=== PATIENT | male | born 1945 | race Caucasian/White ===

== ENCOUNTER → 2023-11-11 14:21 | Outpatient (REF) | payer MEDICARE, OTHER, SELFPAY | LOC: RAD 14:21 | PROVIDERS: ATTENDING PHYSICIAN Family Medicine | DX: R06.02 Shortness of breath (principal) | CPT/HCPCS: 71046 ==

== ENCOUNTER → 2023-11-14 07:40 | Outpatient (REF) | payer MEDICARE, OTHER, SELFPAY | LOC: RAD 07:40 | PROVIDERS: ATTENDING PHYSICIAN Family Medicine | DX: J84.10 Pulmonary fibrosis, unspecified (principal) | CPT/HCPCS: 71250 ==

== ENCOUNTER → 2023-12-10 07:02 | Outpatient (REF) | payer MEDICARE, OTHER, SELFPAY ==
[2023-12-10] MEDS: LEXISCAN 0.400000000000000022 MG IV (08:58)
[2023-12-10] MEDS: AMINOPHYLLINE 75 MG IV (09:19)
== END ==
LOC: RCS 07:02
PROVIDERS: ATTENDING PHYSICIAN Family Medicine
DX: R06.09 Other forms of dyspnea (principal)
CPT/HCPCS: 78452; 93017; A9500; J2785

== ENCOUNTER → 2023-12-13 12:33 | Outpatient (REF) | payer MEDICARE, OTHER, SELFPAY | LOC: RAD 12:33 | PROVIDERS: ATTENDING PHYSICIAN Family Medicine | DX: M54.50 Low back pain, unspecified (principal) | CPT/HCPCS: 72110; 72202 ==

== ENCOUNTER → 2023-12-23 13:32 | Outpatient (REF) | payer MEDICARE, OTHER, SELFPAY | LOC: HWRCS 13:32 | PROVIDERS: ATTENDING PHYSICIAN Internal Medicine Critical Care Medicine; FAMILY PHYSICIAN Family Medicine | DX: R06.09 Other forms of dyspnea (principal) | CPT/HCPCS: 36415; 82085; 83516; 83880; 85025; 85379; 85652; 86038; 86225; 86235; 86331; 86430; 86606; 93306 ==

== ENCOUNTER → 2023-12-31 12:00 | Outpatient (REF) | payer MEDICARE, OTHER, SELFPAY ==
[2023-12-31 14:57] LABS: C-Reactive Protein < 5.00 mg/L (0.0-10.00)
[2024-01-03 15:24] LABS: IgE 76 kU/L (<=214)
== END ==
LOC: REG 12:00
PROVIDERS: ATTENDING PHYSICIAN Internal Medicine Critical Care Medicine
DX: J31.0 Chronic rhinitis (principal); Z78.9 Other specified health status; J84.9 Interstitial pulmonary disease, unspecified
CPT/HCPCS: 36415; 82785; 86140

== ENCOUNTER 2024-01-25 13:17 | Observation (INO) | payer MEDICARE, OTHER, SELFPAY ==
[2024-01-25] VITALS (21 sets, daily range): BP systolic 119–170; BP diastolic 67–90; PULSE 64; O2SAT 95; BMI 27.1; BMI 26.5
--- NOTE | 2024-01-25 06:50 | ED.GENMED ---
History of Present Illness
General
Chief Complaint: Breathing Problem
Source: patient
Exam Limitations: none
Time Seen by Provider: 01/25/24 06:26
Nursing documentation reviewed up to this point in time: agreed with
Travel History
Have you had any contact with someone who has COVID-19?: No
Do you have any symptoms of coronavirus? Fever > 100 degrees, chills, cough, shortness of breath, sore throat, loss of taste or smell, muscle aches, or headache?: No
History of Present Illness
History of Present Illness:
The patient is a 78-year-old man with a past medical history of Parkinson's who lives alone and called an ambulance this morning because he felt as though he could not take good deep breaths. Patient reports that he sat up on the edge of the bed
and felt like he could not breathe. Denies cough and fever. He denies chest pain. In addition, he reports that he is unable to empty his bladder, which is unusual for him. He is requesting a catheter. He reports he has not urinated since last
night. He reports he is generally able to urinate without difficulty.
Past History
Past History
ED Past Medical History: Hypercholesterolemia, Other (Chronic alcohol use) and Other (Parkinson disease)
ED Past Surgical History: Other
Social History
Tobacco: Non-smoker
Alcohol: Chronic alcoholic
Drug: None
Personal:
Living: alone
Employment: Other
Family History
Family History: Other
Review of Systems
Review of Systems
Allergies reviewed?: Yes
All Other Systems: ROS reviewed and negative except as documented in HPI and ROS
Constitutional: Reports fatigue
EENT: Reports no symptoms
Respiratory: Reports trouble breathing
Cardiac: Reports no symptoms
ABD/GI: Reports no symptoms
: Reports difficulty voiding
Musculoskeletal: Reports no symptoms
Skin: Reports no symptoms
Neurological: Reports no symptoms
Endocrine: Reports no symptoms
Hematologic/Lymphatic: Reports no symptoms
Psychiatric: Reports no symptoms
Phy Exam
Physical Exam
Physical Exam:
Physical Exam
General: no apparent distress, not acutely ill but anxious. Keeps asking questions, difficulty focusing
Neck: supple. no meningeal signs. normal psoterior pharynx
Heart: s1/s2 regular rate and rhythm,
Lungs: no acute respiratory distress. Speaks in full sentences. Clear breath sounds
Abdomen: normal bowel sounds. not tender. no CVAT
Neuro: alert and oriented. no focal neurological deficits
Skin: no rash
Psychiatric: well kept. interactive and cooperative
Extremities: no edema. no calf tenderness. negative homans. good distal pulses
Scores
Heart Failure Risk
Heart Failure Risk Score: Not Applicable
Course
Orders/Labs/Results
Orders:
Orders
01/25/24 06:22
EKG [Electrocardiogram (*1)] Urgent
Reason for Study: Other
Other Reason for Exam: multiple complaints
EKG- Treatment ONCE
01/25/24 06:32
Bladder Scan- Treatment ONCE
01/25/24 06:33
CR Chest - 2 Views Urgent
Comment:
Reason For Exam: SOB
01/25/24 07:19
Alcohol Urgent
Complete Blood Count/With Diff Urgent
Comprehensive Metabolic Panel Urgent
NT-proBNP Urgent
Troponin I Urgent
Urinalysis Reflex To Culture Urgent
Date Specimen was Collected: 01/25/24
Time Specimen was Collected: 07:18
01/25/24 07:50
Straight cath- Treatment ONCE
Physical Therapy Consult [Pt Eval And Treat] Urgent
Activity Level: Out of Bed-Early Mobility
01/25/24 08:43
D-Dimer Urgent
01/25/24 09:22
Case Management Consult ONCE
Case Management Consult: Discharge Planning
Comment: Pt says he is not doing well at home alone. Refused to get OOB with PT
01/25/24 09:34
Carbidopa/Levodopa [Sinemet 25-100] 1.5 tablet PO NOW STA
01/25/24 11:09
Lorazepam [Ativan] 1 mg PO NOW STA
01/25/24 11:10
Case Management Consult ONCE
Case Management Consult: VN/Home Care
Requested By:: PHYSICIAN
Abnormal Lab Results
01/25/24
07:19
MCV 94.7 H fL
(80.0-94.0)
MCH 32.2 H pg
(27.0-31.0)
Carbon Dioxide 31 H mmol/L
(22-30)
BUN 24 H mg/dl
(9-20)
Glucose 103 H mg/dl
(70-99)
01/25/24 07:19
01/25/24 07:19
Vital Signs
Initial and Last Documented VS:
Initial Vital Signs
Pulse Ox
86
01/25/24 05:37
Last Documented Vital Signs
Temp Pulse Resp BP Pulse Ox
97.9 F 65 21 137/83 96
01/25/24 05:38 01/25/24 11:30 01/25/24 11:30 01/25/24 11:00 01/25/24 11:30
MDM/Problems Addressed
Differential Diagnosis Includes:
CHF, pneumonia, acute coronary syndrome
MDM/Problems Addressed:
Patient presents with acute shortness of breath and urinary retention
Chronic conditions affecting care:
Parkinson's
*Radiology
Radiology exam reviewed: preliminary read by ED provider (Chest x-ray read by me. No acute disease) and radiology read reviewed
*Pulse Oximetry
Patient hypoxic: no
*EKG
Interpreted by ED Provider?: Yes
Interpretation: abnormal
Comparison EKG: no changes
Rate: normal
Rhythm: sinus
[place]: left axis deviation
Interval: normal interval
QRS Pattern: right bundle branch block
Ischemia: non-specific ST changes
*Reporting Manager Interpretation
Rate: normal
Interpretation: normal
Rhythm: sinus
*Critical Care Note
Total Time (30-74mins, 75-104mins- exclusive of procedures): Not Applicable
Data Reviewed
Review of Other/Old Records Reveals: Discharge Summary (Patient was recently admitted in 2022 for ambulatory dysfunction, chronic alcohol use and withdrawal and hyponatremia. Hospitalist discharge summary reviewed)
Source: patient
Patient Management
Discussion with other providers: Hospitalist and Other (Physical therapy, case management)
Escalation/DeEscalation of care consider admission/obs:
Patient shows no sign of tachypnea, tachycardia, hypoxia or any shortness of breath. There is no sign of pneumonia, heart failure, PE or acute coronary syndrome. I spoke extensively to the patient's son reports that his father is extremely
anxious, especially because he lives alone and his Parkinson's has worsened. Patient does have daytime care at home, however, he does not have care at night. Patient's son reports that he could fly in from [place] to help take care of his father
but is unable to come today. Physical therapy evaluated the patient and he is unfortunately very unsteady on his feet, requiring 2 people to keep him from falling. Therefore, patient is unsafe to go home. Patient will be admitted to the hospital
for ambulatory dysfunction. Is unsafe for him to go home.
Update Note
Update Note:
I spoke over the phone to the patient's son who reports that the patient has gotten increasingly anxious and feels that patient feels short of breath from time to time due to anxiety
Patient has been breathing comfortably for hours with no tachycardia, tachypnea or hypoxia. Chest x-ray appears clear. EKG is unchanged. Clinically there is no sign of CHF
ED Attending Note
-
Portions of this chart may have been created with voice recognition software.� Occasional wrong word or��sound alike� substitutions may have occurred due to the inherent limitations of voice recognition software.
Discharge Plan
Departure
Patient Disposition: Admit
Date of Disposition: 01/25/24
Time of Disposition: :23
Admit to: Med/Surg
Presentation/result/management discussed w/ accepting MD/DO: Hospitalist
Patient with high blood pressure during this ER visit?: Yes
Condition: Good
Discharge Problem:
Ambulatory dysfunction, Parkinson disease
Prescriptions:
No Action
venlafaxine [Effexor XR] 75 mg Capsule,Extended Release 24hr
75 mg PO DAILY
atorvastatin [Lipitor] 40 mg Tablet
40 mg PO HS
melatonin 3 mg Tablet
6 mg PO HS
tamsulosin [Flomax] 0.4 mg Capsule
0.4 mg PO 0800,1530
mirtazapine 45 mg Tablet
45 mg PO HS
lorazepam 1 mg Tablet
1 mg PO Q8HPRN PRN (Reason: anxiety)
carbidopa-levodopa 25-100 mg Tablet
1.5 tab PO DIRECTED
Rx Instructions:
8am, 10am, 12pm, 1530, 1930, 2200
cholecalciferol (vitamin D3) [Vitamin D3] 25 mcg (1,000 unit) Tablet
25 mcg PO DAILY
omega-3 fatty acids-fish oil 684-1,200 mg Capsule,Delayed Release(Dr/Ec)
1 cap PO DAILY
coQ10 (ubiquinol) 100 mg Capsule
200 mg PO DAILY
Move Free Plus MSM 500 mg-66.7 mg- 500 mg-1.1 mg Tablet
2 tab PO DAILY
zolpidem [Ambien] 10 mg Tablet
5 mg PO HSPRN PRN (Reason: sleep) Qty: 0 0RF
Referrals:
Maurice Vazquez DO [Family Provider] -
Interventions
Interventions:
*Risk Screen - Suicide Last Done: 01/25/24 05:38
*General Assessment Last Done: 01/25/24 05:38
*Neglect/Abuse Screening Last Done: 01/25/24 05:38
ED- Fall Risk Assessment Last Done: 01/25/24 05:53
*ED COVID-19 Vaccine History Last Done: 01/25/24 05:53
ED- Cardiac Assessment Last Done: 01/25/24 05:53
ED- Pulmonary Assessment Last Done: 01/25/24 05:53
Discharge Date and Time
Print Language: PAPUA [place]
[2024-01-25 07:30] LABS: % Eosinophils 3.7 % (0-6); % Immature Granulocytes 0.3 % (0-0.5); % Lymphocytes 32.9 % (20.5-51.1); % Neutrophils 54.1 % (42.2-75.2); Absolute Basophils 0.1 10^3/uL (0-0.2); Absolute Eosinophils 0.3 10^3/uL (0-0.7); Absolute Lymphocytes 2.4 10^3/uL (1.2-3.4); Absolute Monocytes 0.6 10^3/uL (0.1-0.6); Hemoglobin 15.3 g/dL (13.0-18.0); Mean Corpuscular Hgb 32.2 pg (27.0-31.0); Mean Corpuscular Volume 94.7 fL (80.0-94.0); Nucleated Red Blood Cells % 0 % (-); Platelet Count 312 10^3/uL (130-400); Red Blood Cell Count 4.75 10^6/uL (4.70-6.10); Red Cell Dist. Width 13.5 % (11.5-14.5); White Blood Cell Count 7.3 10^3/uL (4.8-10.8)
[2024-01-25 07:32] LABS: Urine Albumin Negative (Neg - Trace); Urine Bilirubin Negative (Negative); Urine Character Clear (Clear); Urine Color Yellow; Urine Glucose Negative (Negative); Urine Ketone Negative (Negative); Urine Leukocyte Negative (Negative); Urine Nitrite Negative (Negative); Urine Occult Blood Negative (Negative); Urine Urobilinogen Negative (Neg - 1+)
[2024-01-25 07:50] LABS: NT-proBNP 36.4 pg/ml; Troponin I < 0.012 ng/ml
[2024-01-25 07:52] LABS: ALT (SGPT) 25 U/L (0-50); AST (SGOT) 34 U/L (17-59); Alcohol None Detected; Alkaline Phosphatase 90 U/L (38-126); Blood Urea Nitrogen 24 mg/dl (9-20); Calcium 9.6 mg/dl (8.4-10.2); Carbon Dioxide 31 mmol/L (22-30); Chloride 105 mmol/L (98-107); Estimated Creatinine Clearance 73 ml/min; Glucose 103 mg/dl (70-99); Potassium 4.7 mmol/L (3.5-5.1); Sodium 138 mmol/L (135-145); Total Bilirubin 0.6 mg/dl (0.2-1.3); Total Protein 6.7 g/dl (6.3-8.2); eGFR > 60.00
[2024-01-25 09:33] LABS: D-Dimer 0.34 ug/mlFEU (0.00-0.50)
--- NOTE | 2024-01-25 10:21 | CM ---
Addendum entered by Grant Montenegro 01/25/24 14:19:
OBS status explained to the pt and his caregiver, pt expressed understanding, GUTIERREZ letter signed, will be placed on chart, pt has a copy.
Pt's caregiver confirmed that pt's son will come tomorrow and she with pt's son will transport pt home tomorrow with [facility], [facility] caregiver services and son's support. .
Addendum entered by Grant Montenegro 01/25/24 11:42:
PT evaluations noted - SNF level of care vs home PT with 24/7 caregiver services recommended.
CM discussed it with pt and his caregiver. Medicare rules and regulations explained and they expressed their understanding. Pt expressed his very unhappy feelings regarding even talking about SNF and pt made a strong request he wants to go home.
Option of SNF with private pay discussed with the pt and he adamantly requested he will go home.
Pt has been requested a dose of Lorazepam, asking for 2mg and per caregiver pt is getting 1mg of Lorazepam daily and per caregiver pt cannot get more. MD and RN are aware.
GABBI spoke to pt's daughter who lives in [facility] by using caregiver phone on speaker and pt's daughter has been informed of pt's current functional ability requiring 24/7 caregiver services and pt's daughter stated: 'it's fine, send my father home and I
will work with [employer] to request 24/7 caregivers services. Pt expressed his apology to his daughter for bothering her. Pt's daughter requested to E:mail her a request for 24/7 caregiver services and she will submit a request to [facility]. GABBI
E:mailed PT and MD request for 24/7 caregiver services at [email or web address]
GABBI spoke to pt's caregiver and she stated she spoke to her office and there will be no way that [facility] will be able to provide 24/7 caregiver services on the weekend and it is a possibility that [facility] will be able to do it from Saturday.
GABBI spoke to pt's son Hanane and he stated he will come to stay with his father till [facility] 24/7 caregivers services will be in place and pt's son stated he is looking for to get a flight to come here.
CM spoke to pt's son again and he stated he can have fight as early as 12:00 a.m and he can come to pt's home lap winder tomorrow.
Pt's caregiver stated she can be with the pt only till 4:00 p.m. today and she has a different client to care for and she will not be able to stay with the pt after 4:00 p.m.
At this point, it is unsafe for pt to return back home without 24/7 caregiver services or family support today and pt will have caregiver services ands son's support tomorrow.
Pt will be admitted for OBS level till tomorrow when confirmed that son is available to care for the pt at home with regular hours of [facility] caregiver services.
Pt referred to [facility] for RN, PT and OT.
D/C plan: home tomorrow with [facility], [facility] caregiver services and son's support. Caregiver stated she will transport pt home. Pt refused to have any other form of transportation.
Original Note:
CM following re: discharge planning.
CM consult to assist pt with discharge planning in ED.
Reviewed pt's chart, met with pt and pt's caregiver Flaurette at bedside.
Pt is a 78 year old male, arrived to ED with primary concerns of Breathing Problem and PMH of Parkinson's.
Pt presents lying in the stretcher with somehow depressed mood, sad and irritable affect, repeats stating: 'i cannot breath, my legs shaking, I have Parkinson'. Emotional support offered and provided. Change in talk approach was used and pt
participated in the interview with somehow dismissing attitude and pt's caregiver has to step in to provide with psychosocial and prior level of functioning information.
Pt lives alone in a condo, 2nd floor, with elevator, no steps to enter. Pt's spouse 1 year ago, daughter lives in [facility] and son lives in [place]. Pt's caregiver stated she already update pt's daughter and pt's son on current
situation with the pt. Pt corrected he lives in [place]. Per caregiver, pt ambulates without assistive devices, has a walker and a cane and does not use it. per caregiver pt has private caregiver services provided by [facility]: M-F: 9:00 a.m. till 4 p.m and weekends 10:00 a.m till 4:00 p.m. per caregiver, pt has [employer] care insurance that pays for caregiver services. 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
Pt's caregiver stated that pt can return back home and she will transport him home if needed. Pt's caregiver stated that pt is known to [facility] and heel layer the pt on a monthly basis.
PT attempted to evaluate the pt this morning and pt refused to participate. pt's caregiver stated she will help with pt's participation. CM TTed PT with a request to evaluate the pt.
PCP: Maurice Vazquez
Pharmacy: [facility].
D/C plan: most likely home with [facility] caregiver services and family emotional support. Awaiting for PT evaluations and recommendations.
[2024-01-25] MEDS: SINEMET 25-100 1.5 TABLET PO (11:01)
[2024-01-25] MEDS: ATIVAN 1 MG PO ×2 (11:21→21:40)
--- NOTE | 2024-01-25 12:46 | HPS.HSE ---
Addendum entered and electronically signed by Bradley Sanz MD 01/25/24 13:31:
78-year-old male with a past medical history of worsening Parkinson's disease, polypharmacy, anxiety on Ativan, insomnia on Ambien, and BPH presents with worsening ambulatory dysfunction due to weakness. Patient lives alone, and is unsafe to go
home. Noted is that he is on Ativan 1 mg twice a day prn, in addition to Ambien 10 mg at bedtime, and melatonin 30 mg twice a day�he takes it before his nap time in the afternoon and at night. Suspect he has a component of polypharmacy
contributing to his ambulatory dysfunction. He was seen by PT in the ER, who recommends short-term rehab versus home with 24-hour supervision. He declined SNF placement. He lives alone. His son is coming to visit tomorrow. He also had urinary
retention, requiring straight cath twice in the ER. He is now able to void. Will continue Flomax. Monitor overnight.
He also has changed his mind about his CODE STATUS. Initially he said he wanted to be DNR.
Now he wants full code. Orders have been changed in the computer system to reflect this.
I have personally seen and examined the patient, and agree with the plan of care as documented by Giana Sutton PA-C.
Advance care planning discussed, patient is a full code.
All other issues as outlined by the advanced care practitioner.
Original Note:
Family Physician
-
Family Physician: Maurice Vazquez DO
Chief Complaint
-
Weakness
History of Present Illness
Patient is a 78 year old male with a past medical history of Parkinson's, anxiety, prior alcohol use disorder, and hypercholesterolemia presents to the ED with worsening dyspnea and trouble with ambulation that started this morning which
progressively became worse. He states he would get short of breathe with '2-3 steps' but then it became more progressive which prompted his call to 911. He also was unable to urinate since last night, and due to worsening neuropathy in feet, he was
having difficulty with ambulation. Since arriving to the ED, his symptoms have improved, and ED work-up is negative. He received straight catheterization and was able to urinate x2 since. He continues with numbness of his hands and feet which is
chronic. He was evaluated by PT in the ED but he was unable to ambulate safely, and they are suggesting SNF vs home with 24 hour care.
Medical History
Past Medical History
Past Medical History: Reports Other
Additional Past Medical History:
Hyperlipidemia
Parkinson's Disease
Peripheral Neuropathy
BPH
Generalized Anxiety Disorder / Insomnia
Past Surgical History: Reports None
Social History
Tobacco: Non-smoker
Alcohol: Former
Living: Alone
Family History
Family History: Not pertinent
Allergies / Home Medications
Allergies reflects when Allergies were last updated in [facility].
Home Medications with original date entered in [facility]
Allergy/Medication List:
Allergies
Allergy/AdvReac Type Severity Reaction Status Date / Time
No Known Allergies Allergy Verified 06/12/23 10:51
Home Medications
atorvastatin 40 mg tablet (Lipitor) 40 mg PO DAILY High Cholesterol 07/10/23
cholecalciferol (vitamin D3) 25 mcg (1,000 unit) tablet (Vitamin D3) 25 mcg PO DAILY Supplement 07/10/23
lorazepam 1 mg tablet 1 mg PO BIDPRN PRN anxiety 07/10/23
mirtazapine 45 mg tablet 45 mg PO HS Mental Health/sleep 07/10/23
tamsulosin 0.4 mg capsule (Flomax) 0.8 mg PO DAILY Urinary Issue 07/10/23
Prevagen 1 cap PO DAILY 01/25/24
Sleepeez 2 tab PO BIDPRN PRN sleep 01/25/24
buspirone 5 mg tablet 5 mg PO BID 01/25/24
carbidopa ER 50 mg-levodopa 200 mg tablet,extended release 1 tab PO QID@0800,12,1530,22 01/25/24
coQ10 (ubiquinol) 200 mg capsule 200 mg PO DAILY 01/25/24
fluticasone propionate 50 mcg/actuation nasal spray,suspension 1 spray intranasal DAILY 01/25/24
gabapentin 100 mg capsule 100 mg PO HS 01/25/24
magnesium oxide 1,000 mg PO HS 01/25/24
melatonin 10 mg chewable tablet 30 - 50 mg PO BID 01/25/24
meloxicam 15 mg tablet 15 mg PO DAILY 01/25/24
multivitamin 1 tab PO DAILY 01/25/24
naproxen 220 mg-diphenhydramine 25 mg tablet (Aleve PM) 2 tab PO HS 01/25/24
naproxen sodium 220 mg tablet (Aleve) 440 mg PO DAILY 01/25/24
omega 4-jmg-gfb-fish oil 1,000 mg (120 mg-180 mg) capsule (Fish Oil) 1 cap PO DAILY 01/25/24
venlafaxine 150 mg capsule,extended release 24 hr 150 mg PO DAILY 01/25/24
zolpidem 10 mg tablet (Ambien) 10 mg PO HS 01/25/24
Review of Systems
-
A 12 point ROS was completed and negative except as noted: Yes
Constitutional: Denies Fever or Chills
Respiratory: Denies Cough or Trouble Breathing
Cardiac: Denies Chest Pain or Palpitations
Physical Exam
Vital Signs
Vital Signs
Temp Pulse Resp BP Pulse Ox
97.9 F 65 21 134/72 96
01/25/24 05:38 01/25/24 11:30 01/25/24 11:30 01/25/24 11:30 01/25/24 11:30
Physical Exam
General: Comfortable and Conversant
HEENT: NormoCephalic, Moist mucous membranes and Atraumatic
Respiratory: Rales (Bilateral bases) and Non Labored Respirations
Cardiac: S1/S2 and Regular Rhythm
GI: Soft and Non Tender
Rectal: Deferred by Provider
Musculoskeletal: No Clubbing, No Cyanosis and No Edema
Skin: Warm and Dry
Neuro: Awake, Alert, Oriented and Nonfocal/grossly intact
Psych: Calm
Laboratory Results
-
01/25/24 07:19
01/25/24 07:19
Laboratory Results
Total Bilirubin 0.6 mg/dl (0.2-1.3) 01/25/24 07:19
AST 34 U/L (17-59) 01/25/24 07:19
ALT 25 U/L (0-50) 01/25/24 07:19
Alkaline Phosphatase 90 U/L (38-126) 01/25/24 07:19
Troponin I < 0.012 ng/ml 01/25/24 07:19
Data Reviewed
-
Diagnostic Radiology: Report Reviewed by me
Lab Data: Labs Reviewed by me
Impression/Plan
-
Ambulatory Dysfunction
-Continue PT/OT
-Plan for home once 24 hour care can be arranged
Parkinson's Disease
-Continue Sinemet
Peripheral Neuropathy
-Continue gabapentin
-Consider increasing dose if neuropathy worsens
-Check vitamin b12 and folic acid
Hyperlipidemia
-Continue Lipitor
BPH
-Monitor bladder scans
-Continue Flomax
Generalized Anxiety Disorder / Insomnia
-Continue BuSpar, Mirtazapine and Venlafaxine
-Continue Ambien
Osteoarthritis
-Continue meloxicam
DVT proph: SCDs
Code Status: DNR
--- NOTE | 2024-01-25 13:31 | W.PN.UPDATE ---
Update Note
Progress Note Update
For billing purposes.
--- NOTE | 2024-01-25 15:00 | PTCARENOTE ---
Received patient from ED via stretcher. Pt AAOX3. Pox: 95% RA. Patient denies pain/SOB. Caregiver at bedside. Bed alarm on. Call gong within reach. Plan of care ongoing.
[2024-01-25 15:39] LABS: Folate 10.4 ng/ml (2.76-20); Vitamin B12 377 pg/ml (239-931)
[2024-01-25] MEDS: SINEMET CR 50/200 (EXTENDED RELEASE) 1 TABLET PO ×2 (16:00→21:31)
[2024-01-25] MEDS: TYLENOL 650 MG PO (17:24)
[2024-01-25] MEDS: BUSPAR 5 MG PO (20:43)
[2024-01-25] MEDS: AMBIEN 10 MG PO (21:31)
[2024-01-25] MEDS: REMERON 45 MG PO (21:31)
[2024-01-25] MEDS: NEURONTIN 100 MG PO (21:31)
[2024-01-25] MEDS: MELATONIN 10 MG PO (21:31)
[2024-01-25] MEDS: MAGNESIUM OXIDE 1000 MG PO (21:32)
[2024-01-26 00:06] VITALS: BP 123/79
[2024-01-26 07:12] VITALS: BP 133/76
[2024-01-26] MEDS: EFFEXOR XR 150 MG PO (08:31)
[2024-01-26] MEDS: FLOMAX 0.800000000000000044 MG PO (08:31)
[2024-01-26] MEDS: VITAMIN D3 (cholecalciferol) 25 MCG PO (08:31)
[2024-01-26] MEDS: LIPITOR 40 MG PO (08:32)
[2024-01-26] MEDS: MOBIC 15 MG PO (08:32)
[2024-01-26] MEDS: BUSPAR 5 MG PO (08:32)
[2024-01-26] MEDS: SINEMET CR 50/200 (EXTENDED RELEASE) 1 TABLET PO (08:34)
[2024-01-26] MEDS: TYLENOL 650 MG PO (08:41)
--- NOTE | 2024-01-26 09:24 | W.PN.HOSP.TC ---
Today's Communication/Plan
-
Discharge today
Assessment / Plan
Assessment / Plan
HPI: 78-year-old male with a past medical history of worsening Parkinson's disease, polypharmacy, anxiety on Ativan, insomnia on Ambien, and BPH presents with worsening ambulatory dysfunction due to weakness. Patient lives alone, and is unsafe to
go home. Noted is that he is on Ativan 1 mg twice a day prn, in addition to Ambien 10 mg at bedtime, and melatonin 30 mg twice a day�he takes it before his nap time in the afternoon and at night. Suspect he has a component of polypharmacy
contributing to his ambulatory dysfunction. He was seen by PT in the ER, who recommends short-term rehab versus home with 24-hour supervision. He declined SNF placement. He lives alone. His son is coming to visit tomorrow. He also had urinary
retention, requiring straight cath twice in the ER. He is now able to void. Will continue Flomax.
Ambulatory Dysfunction
-Continue PT/OT
-Son is here for 24-hour care, discharge today
Parkinson's Disease
-Continue Sinemet
Peripheral Neuropathy
-Continue gabapentin
Hyperlipidemia
-Continue Lipitor
BPH
-Monitor bladder scans
-Continue Flomax
Generalized Anxiety Disorder / Insomnia
-Continue BuSpar, Mirtazapine and Venlafaxine
-Continue Ambien
Osteoarthritis
-Continue meloxicam
DVT proph: SCDs
Code Status: Full Code
Updated son on phone 01/25
Physical Exam
General: Chronically debilitated, no acute distress
HEENT: Normocephalic, Atraumatic, EOMI, MMM
Respiratory: Clear to Auscultation bilaterally
Cardiac: Normal S1/S2, Regular Rate and Rhythm
GI: Soft, Nontender, Nondistended, Normal Bowel Sounds
Extremities: No Clubbing, Cyanosis, or Edema
Neuro: Resting tremor noted
Anticipated Discharge: Today
Subjective/Interval History
-
Date of Service: January 26, 2024
No recurrence of urinary retention. Patient is voiding fine. He is breathing fine. He is eating well. He is ready for discharge.
Objective Data
-
Vital Signs:
Vital Signs
Temp Pulse Resp BP Pulse Ox
97.5 F 59 18 133/76 95
01/26/24 07:12 01/26/24 07:12 01/26/24 07:12 01/26/24 07:12 01/26/24 07:12
I&O
01/25/24 01/26/24 01/27/24
06:59 06:59 06:59
Output Total 600 / 600
Balance -600 / -600
[2024-01-26] MEDS: ATIVAN 1 MG PO (09:25)
--- NOTE | 2024-01-26 11:20 | W.DCSUMMARY ---
Discharge Summary
Discharge Data
Date of Admission: 01/25/24
Date of Discharge: 01/26/24
-
Pending Results: No
Hospital Course
Discharge diagnosis:
Ambulatory dysfunction
Worsening weakness
Worsening Parkinson disease
Benign prostatic hypertrophy with transient urinary retention
Anxiety on Ativan
Insomnia on Ambien
Polypharmacy
Peripheral neuropathy
Hyperlipidemia
Hospital course:
78-year-old male with a past medical history of worsening Parkinson's disease, anxiety on Ativan, insomnia on Ambien, polypharmacy, and BPH presents with worsening ambulatory dysfunction due to weakness. Patient lives alone, and is unsafe to go
home. Noted is that he is on Ativan 1 mg twice a day prn, in addition to Ambien 10 mg at bedtime, and melatonin 30 mg twice a day�he takes it before his nap time in the afternoon and at night. Suspect he has a component of polypharmacy
contributing to his ambulatory dysfunction. He was seen by PT in the ER, who recommends short-term rehab versus home with 24-hour supervision. He declined SNF placement. He lives alone.
Patient was monitored overnight. He did not have any recurrence of urinary retention. His son arrived the following day. He is medically stable for discharge home with 24-hour supervision.
Disposition: Home with home care
Discharge planning: Required 31 minutes
Discharge Plan
-
Patient Disposition: Home with Home Care
Discharge Diagnosis/Procedures: Parkinson's disease, ambulatory dysfunction, weakness, transient urinary retention requiring straight catheterization
Condition: Fair
Diet: Regular
Activity: As tolerated
Driving Restrictions: No driving
Other Services: VN
Referrals:
Maurice Vazquez DO [Family Provider] - in one week
Prescriptions:
Continued
atorvastatin [Lipitor] 40 mg Tablet
40 mg PO DAILY
tamsulosin [Flomax] 0.4 mg Capsule
0.8 mg PO DAILY
mirtazapine 45 mg Tablet
45 mg PO HS
lorazepam 1 mg Tablet
1 mg PO BIDPRN PRN (Reason: anxiety)
cholecalciferol (vitamin D3) [Vitamin D3] 25 mcg (1,000 unit) Tablet
25 mcg PO DAILY
multivitamin Tablet
1 tab PO DAILY
buspirone 5 mg Tablet
5 mg PO BID
meloxicam 15 mg Tablet
15 mg PO DAILY
carbidopa-levodopa 50-200 mg Tablet Extended Release
1 tab PO QID@0800,12,1530,22
venlafaxine 150 mg Capsule,Extended Release 24hr
150 mg PO DAILY
naproxen sodium [Aleve] 220 mg Tablet
440 mg PO DAILY
magnesium oxide 500 mg magnesium Tablet
1,000 mg PO HS
gabapentin 100 mg Capsule
100 mg PO HS
fluticasone propionate 50 mcg/actuation [place],Suspension
1 spray INTRANASAL DAILY
coQ10 (ubiquinol) 200 mg Capsule
200 mg PO DAILY
omega 4-ndu-lkj-fish oil [Fish Oil] 1,000 mg (120 mg-180 mg) Capsule
1 cap PO DAILY
Aleve PM 220-25 mg Tablet
2 tab PO HS
melatonin 10 mg Tablet,Chewable
30 - 50 mg PO BID
Patient Comments:
01/25/2024, pt. takes before naps around 1530 and before bedtime.
Prevagen
1 cap PO DAILY
Sleepeez
2 tab PO BIDPRN PRN (Reason: sleep)
zolpidem [Ambien] 10 mg tablet
10 mg PO HS
Discharge Orders:
Discharge Patient (As Directed); Ordered 01/26/24
Ordered By: Bradley Sanz
Discharge Date and Time
Discharge Date/Time: 01/26/24 12:13
Print Language: JORDANIAN
[2024-01-26 11:45] VITALS: BP 111/65
--- NOTE | 2024-01-26 12:23 | CM ---
Pt dc to home today with Isai MALIK.
Isai RN and son were at bedside prior to dc.
No additional needs identified.
== END 2024-01-26 12:13 | disposition home health service (06) ==
LOC: 4 EAST ACU 13:17
PROVIDERS: ADMITTING PHYSICIAN Family Medicine; EMERGENCY PHYSICIAN Emergency Medicine; FAMILY PHYSICIAN Family Medicine
DX: R33.9 Retention of urine, unspecified (principal); R06.02 Shortness of breath; R53.1 Weakness; G20.A1 Parkinson's disease without dyskinesia, without mention of fluctuations; R26.2 Difficulty in walking, not elsewhere classified; E78.00 Pure hypercholesterolemia, unspecified; F41.1 Generalized anxiety disorder; G47.00 Insomnia, unspecified; N40.1 Benign prostatic hyperplasia with lower urinary tract symptoms; G62.9 Polyneuropathy, unspecified; M19.90 Unspecified osteoarthritis, unspecified site; J84.10 Pulmonary fibrosis, unspecified; Z60.2 Problems related to living alone; Z66 Do not resuscitate; Z79.1 Long term (current) use of non-steroidal anti-inflammatories (NSAID)
CPT/HCPCS: 51701; 51798; 71046; 80053; 81003; 82077; 82607; 82746; 83880; 84484; 85025; 85379; 93005; 99285; G0378

== ENCOUNTER → 2024-02-05 11:11 | Outpatient (REF) | payer MEDICARE, OTHER, SELFPAY | LOC: PAVMRI 11:11 | PROVIDERS: ATTENDING PHYSICIAN Psychiatry & Neurology Neurology; FAMILY PHYSICIAN Family Medicine | DX: G20.A1 Parkinson's disease without dyskinesia, without mention of fluctuations (principal) | CPT/HCPCS: 70551 ==

== ENCOUNTER 2024-07-10 05:24 | Emergency (ER) | payer MEDICARE, OTHER, SELFPAY ==
[2024-07-10] VITALS (7 sets, daily range): BP systolic 117–148; BP diastolic 72–81; BMI 28.9
--- NOTE | 2024-07-10 05:59 | ED.GENMED ---
History of Present Illness
General
Chief Complaint: Breathing Problem
Time Seen by Provider: 07/10/24 05:59
History of Present Illness
History of Present Illness:
TIME OF INITIAL ENCOUNTER: 7 AM
HPI: Patient came in by ambulance due to sensation that he could not breathe. He also says that he has trouble feeling his feet. He was found to be 97% on room air for EMS. His blood sugar was normal. He requests his usual dose of lorazepam and
did not take any of his medications today including his Parkinson's meds. He is not sure of his doses.
EXAM:
GENERAL: Well appearing despite saying that he feels short of breath, he is in no respiratory distress, bradykinesia noted, room air sats 97%
HEENT: Moist oral mucosa
CARDIOVASCULAR: No murmurs, normal heart rate, regular rhythm, No chest wall tenderness
PULMONARY: No respiratory distress, breath sounds are clear and equal
ABDOMEN: Soft with no peritoneal signs, mild suprapubic tenderness
BACK: Decreased AROM of TL spine
NEUROLOGIC: Bradykinesia noted, decree sensation noted to the feet, subtle resting tremor noted
PSYCHIATRIC: Appropriate mental status, normal insight and judgement
EXTREMITIES: Nontender, no edema, moves all extremities equally, strong DP pulses bilaterally
SKIN: No rash, no lesions
NUMBER AND COMPLEXITY OF PROBLEMS ADDRESSED AT THE ENCOUNTER
� Chronic conditions affecting care: Parkinson's, anxiety/depression, peripheral neuropathy, BPH
� Acute Exacerbation and/or Progression of Chronic Illness: This is an acute problem but seems to have a chronic component as well
� Differential Diagnosis includes: Anxiety, pneumonia, exacerbation of peripheral neuropathy, AUR
AMOUNT AND/OR COMPLEXITY OF DATA TO BE REVIEWED AND ANALYZED
� I performed an independent evaluation of and my interpretation is:
EK:40 AM: Sinus 58, first-degree AV block, baseline artifact, RSR' pattern, nonspecific ST abnormality
CT:
X-rays: Chest x-ray personally reviewed and agree with radiologist interpretation of chronic appearing interstitial pneumonitis
Laboratory Studies: 6:49 AM: CBC unremarkable, of note MCV no longer elevated, chemistries and BNP unremarkable, urinalysis unremarkable
Other:
� Review of other/old records: I reviewed records, the patient was admitted here with worsening ambulatory dysfunction related to weakness approximately 6 months ago. At that time his ambulatory dysfunction was felt to be
related to polypharmacy. Brain MRI from January 2024 was unremarkable. Lumbar spine x-ray from November 2023 showed marked degenerative changes throughout the lumbar spine
� Clinical information was obtained by an independent historian: I spoke to his aide at bedside
� Prescriptions/Medications Considered but not given:
� Further testing considered but not performed:
RISK OF COMPLICATIONS AND/OR MORBIDITY OR MORTALITY OF PATIENT MANAGEMENT
� Social determinants of health affecting care: History of daily alcohol use but states he has not had any alcohol in 1 year, lives at home and has an aide
� Discussion with other providers: Discussed case with PMD via [place] text throughout his stay in the emergency department
� Escalation of care including admission/observation vs risk of discharge considered: The patient has multiple complaints. He has low back pain on the left side which is chronic for him�will give Tylenol. Bladder scan obtained
as he reports difficulty urinating and he does have a history of BPH. Although he complains of shortness of breath, he has no objective findings on physical examination initially. Will check chest x-ray. He also complains of decreased sensation
to the legs but he does have a history of peripheral neuropathy.
ANY OTHER UPDATES:
6:20 AM: Bladder scan shows 230 mL of urine but patient states he cannot void�will temporarily place a straight cath to drain him and see if this helps his back discomfort.
6:37 AM: Drained bladder - back pain persists, will wait on Cr then try Toradol; I reviewed lumbar MRI from that time showed slight progression of multilevel degenerative changes including spinal stenosis with compression of the L5 nerve
roots
6:51 AM: It is noted the patient takes gabapentin 100 mg at nighttime�given the likely peripheral neuropathy related to spinal stenosis will give dose of gabapentin now
7:03 AM: Renal function normal�will give dose of Toradol
7:50 AM: I spoke to patient at bedside�informed him of a relatively unremarkable workup but has some reservations about going home; contacting physical therapy for evaluation. We also talked about the possibility of that he had a panic attack
earlier.
8:40 AM: Physical PT evaluated the patient�they recommended home PT for which I have ordered a case management consult. Patient thinks he ran out of his lorazepam and can refill starting tomorrow
Past History
Past History
ED Past Medical History: Hypercholesterolemia, Other (Chronic alcohol use) and Other (Parkinson disease)
ED Past Surgical History: Other
Social History
Tobacco: Non-smoker
Alcohol: Chronic alcoholic
Drug: None
Personal:
Living: alone
Employment: Other
Family History
Family History: Other
Phy Exam
Physical Exam
Physical Exam:
See HPI
Scores
Heart Failure Risk
Heart Failure Risk Score: Not Applicable
Course
Orders/Labs/Results
Orders:
Orders
07/10/24 06:06
Bladder Scan- Treatment ONCE
Acetaminophen [Tylenol] 1,000 mg PO NOW STA
CR Chest - 2 Views Urgent
Comment:
Reason For Exam: sob
07/10/24 06:07
Lorazepam [Ativan] 1 mg PO NOW STA
07/10/24 06:11
Carbidopa/Levodopa Cr [Sinemet Cr 50/200 (Extended Release)] 1 tablet PO NOW STA
07/10/24 06:19
Complete Blood Count/With Diff Urgent
Comprehensive Metabolic Panel Urgent
Magnesium Urgent
NT-proBNP Urgent
07/10/24 06:20
Electrocardiogram (*1) Urgent
Reason for Study: Shortness of Breath
EKG- Treatment ONCE
07/10/24 06:34
Urinalysis Reflex To Culture Urgent
Date Specimen was Collected: 07/10/24
Time Specimen was Collected: 06:27
07/10/24 06:51
Gabapentin [Neurontin] 300 mg PO NOW STA
07/10/24 07:02
Ketorolac [Toradol] 15 mg IV NOW STA
07/10/24 07:52
Physical Therapy Consult [Pt Eval And Treat] Urgent
Activity Level: Ambulate
07/10/24 08:50
Case Management Consult ONCE
Case Management Consult: VN/Home Care
Comment: PT RECOMMENDS HOME PT
Abnormal Lab Results
07/10/24
06:19
BUN 21 H mg/dl
(9-20)
Glucose 105 H mg/dl
(70-99)
07/10/24 06:19
07/10/24 06:19
Vital Signs
Pulse: 80
Resp Rate: 16
Initial and Last Documented VS:
Initial Vital Signs
Temp BP Pulse Ox
97.7 F 148/81 97
07/10/24 05:28 07/10/24 05:28 07/10/24 05:28
Last Documented Vital Signs
Temp Pulse Resp BP Pulse Ox
97.7 F 80 16 127/77 96
07/10/24 05:28 07/10/24 06:24 07/10/24 06:24 07/10/24 08:00 07/10/24 08:00
*Critical Care Note
Total Time (30-74mins, 75-104mins- exclusive of procedures): Not Applicable
ED Attending Note
-
Portions of this chart may have been created with voice recognition software.� Occasional wrong word or��sound alike� substitutions may have occurred due to the inherent limitations of voice recognition software.
Discharge Plan
Departure
Patient Disposition: Home (Routine Discharge)
Date of Disposition: 07/10/24
Time of Disposition: 08:37
Patient with high blood pressure during this ER visit?: Yes
Discharge Problem:
Shortness of breath
Prescriptions:
New
gabapentin 300 mg capsule
300 mg PO BID Qty: 60 0RF
No Action
atorvastatin [Lipitor] 40 mg Tablet
40 mg PO DAILY
tamsulosin [Flomax] 0.4 mg Capsule
0.8 mg PO DAILY
mirtazapine 45 mg Tablet
45 mg PO HS
lorazepam 1 mg Tablet
1 mg PO BIDPRN PRN (Reason: anxiety)
cholecalciferol (vitamin D3) [Vitamin D3] 25 mcg (1,000 unit) Tablet
25 mcg PO DAILY
multivitamin Tablet
1 tab PO DAILY
buspirone 5 mg Tablet
5 mg PO BID
meloxicam 15 mg Tablet
15 mg PO DAILY
carbidopa-levodopa 50-200 mg Tablet Extended Release
1 tab PO QID@0800,12,1530,22
venlafaxine 150 mg Capsule,Extended Release 24hr
150 mg PO DAILY
naproxen sodium [Aleve] 220 mg Tablet
440 mg PO DAILY
magnesium oxide 500 mg magnesium Tablet
1,000 mg PO HS
gabapentin 100 mg Capsule
100 mg PO HS
fluticasone propionate 50 mcg/actuation [place],Suspension
1 spray INTRANASAL DAILY
coQ10 (ubiquinol) 200 mg Capsule
200 mg PO DAILY
omega 5-cgy-xkv-fish oil [Fish Oil] 1,000 mg (120 mg-180 mg) Capsule
1 cap PO DAILY
Aleve PM 220-25 mg Tablet
2 tab PO HS
melatonin 10 mg Tablet,Chewable
30 - 50 mg PO BID
Patient Comments:
01/25/2024, pt. takes before naps around 1530 and before bedtime.
Prevagen
1 cap PO DAILY
Sleepeez
2 tab PO BIDPRN PRN (Reason: sleep)
zolpidem [Ambien] 10 mg tablet
10 mg PO HS
Referrals:
Maurice Vazquez DO [Family Provider] -
Activity Restrictions/Additional Instructions:
Follow-up with your primary care doctor. Return here if worse. Complete blood cell count is normal, chemistry levels are normal including no sign of heart failure and normal magnesium level. There is no sign of urinary tract infection. Chest
x-ray shows chronic disease but no acute abnormality.
Interventions
Interventions:
*Risk Screen - Suicide Last Done: 07/10/24 05:28
*General Assessment Last Done: 07/10/24 05:28
*Neglect/Abuse Screening Last Done: 07/10/24 05:28
*ED COVID-19 Vaccine History Last Done: 07/10/24 05:28
ED- Cardiac Assessment Last Done: 07/10/24 05:28
ED- Pulmonary Assessment Last Done: 07/10/24 05:28
Discharge Date and Time
Print Language: MOLDOVAN
[2024-07-10] MEDS: ATIVAN 1 MG PO (06:11)
[2024-07-10] MEDS: TYLENOL 1000 MG PO (06:11)
[2024-07-10] MEDS: SINEMET CR 50/200 (EXTENDED RELEASE) 1 TABLET PO (06:39)
[2024-07-10 06:43] LABS: % Basophils 1.3 % (0-2); % Eosinophils 4.2 % (0-6); % Immature Granulocytes 0.2 % (0-0.5); % Lymphocytes 38.5 % (20.5-51.1); % Monocytes 8.9 % (1.7-9.3); % Neutrophils 46.9 % (42.2-75.2); Absolute Basophils 0.1 10^3/uL (0-0.2); Absolute Eosinophils 0.3 10^3/uL (0-0.7); Absolute Lymphocytes 2.4 10^3/uL (1.2-3.4); Absolute Monocytes 0.6 10^3/uL (0.1-0.6); Absolute Neutrophils 2.9 10^3/uL (1.4-6.5); Hemoglobin 14.6 g/dL (13.0-18.0); Mean Corp Hgb Conc. 33.2 g/dL (33.0-37.0); Mean Corpuscular Hgb 29.1 pg (27.0-31.0); Mean Corpuscular Volume 87.8 fL (80.0-94.0); Nucleated Red Blood Cells % 0 % (-); Platelet Count 300 10^3/uL (130-400); Red Blood Cell Count 5.01 10^6/uL (4.70-6.10); Red Cell Dist. Width 14.4 % (11.5-14.5); White Blood Cell Count 6.2 10^3/uL (4.8-10.8)
[2024-07-10] MEDS: NEURONTIN 300 MG PO (06:56)
[2024-07-10 06:59] LABS: ALT (SGPT) 20 U/L (0-50); AST (SGOT) 34 U/L (17-59); Alkaline Phosphatase 82 U/L (38-126); Blood Urea Nitrogen 21 mg/dl (9-20); Calcium 9.6 mg/dl (8.4-10.2); Carbon Dioxide 28 mmol/L (22-30); Chloride 105 mmol/L (98-107); Estimated Creatinine Clearance 80 ml/min; Glucose 105 mg/dl (70-99); Magnesium 2.1 mg/dl (1.6-2.3); Potassium 4.4 mmol/L (3.5-5.1); Sodium 141 mmol/L (135-145); Total Bilirubin 0.5 mg/dl (0.2-1.3); Total Protein 6.4 g/dl (6.3-8.2); eGFR > 60.00
[2024-07-10 07:07] LABS: NT-proBNP 20.4 pg/ml
[2024-07-10 07:25] LABS: Urine Albumin Negative (Neg - Trace); Urine Bilirubin Negative (Negative); Urine Character Clear (Clear); Urine Color Yellow; Urine Glucose Negative (Negative); Urine Ketone Negative (Negative); Urine Leukocyte Negative (Negative); Urine Nitrite Negative (Negative); Urine Occult Blood Negative (Negative); Urine Urobilinogen Negative (Neg - 1+)
[2024-07-10] MEDS: TORADOL 15 MG IV (07:36)
--- NOTE | 2024-07-10 09:33 | CM ---
Cm met with patient in room. Patient's REGROOVER is at bedside to assist. Patient is agreeable to [facility] for home PT. CM sent referral via [facility].
== END 2024-07-10 09:55 | disposition home or self-care (01) ==
LOC: EMR 05:24
PROVIDERS: EMERGENCY PHYSICIAN Emergency Medicine; FAMILY PHYSICIAN Family Medicine
DX: R06.02 Shortness of breath (principal); E78.00 Pure hypercholesterolemia, unspecified; G20.A1 Parkinson's disease without dyskinesia, without mention of fluctuations; Z79.899 Other long term (current) drug therapy
CPT/HCPCS: 96374; 99285; 71046; 80053; 81003; 83735; 83880; 85025; 93005

== ENCOUNTER 2024-08-16 00:28 | Day surgery (SDC) | payer MEDICARE, OTHER, SELFPAY ==
[2024-08-15 20:59] VITALS: BP 128/70
[2024-08-15 21:05] VITALS: BP 128/70
--- NOTE | 2024-08-15 21:16 | ED.GENMED ---
History of Present Illness
General
Chief Complaint: Esophageal Problem
Source: patient
Exam Limitations: none
Time Seen by Provider: 08/15/24 21:07
History of Present Illness
History of Present Illness:
This is a 79 year old male that comes in with c/o food stuck in his throat. States that he as trying to eat [place] and green beans and suddenly it got caught in his throat. States that he tried to drink water and he brought that up. States that it
is painful. Denies any fever, chills, chest pain, SOB, abd pain, diarrhea, nausea, headache, dizziness, urinary burning.
Past History
Past History
ED Past Medical History: Hypercholesterolemia, Psychiatric (Anxiety, Depression) and Other (Parkinson disease)
ED Past Surgical History: Other
Social History
Tobacco: Non-smoker
Alcohol: None
Drug: None
Personal:
Living: alone
Employment: Other
Family History
Family History: Other
Review of Systems
Review of Systems
All Other Systems: ROS reviewed and negative except as documented in HPI and ROS
Constitutional: Reports no symptoms; Denies fever or chills
EENT: Reports other (feels food stuck in throat. )
Respiratory: Reports no symptoms; Denies cough or trouble breathing
Cardiac: Reports no symptoms; Denies chest pain
ABD/GI: Reports vomiting; Denies abdominal pain, nausea or diarrhea
: Reports no symptoms; Denies dysuria, frequency or urgency
Musculoskeletal: Reports no symptoms
Skin: Reports no symptoms
Neurological: Reports no symptoms; Denies dizzy or headache
Psychiatric: Reports anxiety
Phy Exam
General Physical Exam
General Presentation: mild distress
General age: appears stated age
General Skin: warm and dry
General Habitus: elderly
General Mental: anxious
General Hydration: appears well hydrated
ENT Exam
ENT Exam: TM's normal (Unable to see TM's as implanted hearing aids), pharynx normal and neck supple
Eye Exam
Eye Exam: EOMI
Cardiovascular Exam
Cardiovascular Exam: regular rate/rhythm, no edema and normal peripheral pulses
Pulmonary Exam
Pulmonary Exam: no respiratory distress, no rales, chest non tender, no crackles, no rhonchi and other (Occasional exp wheezing noted, Moist coughing noted)
Gastrointestinal Exam
Gastrointestinal Exam: normal bowel sounds, non tender, soft, no organomegaly, no pulsatile mass and non distended
Musculoskeletal Exam
Musculoskeletal Exam: full ROM and no edema
Skin Exam
Skin Exam: normal color, warm/dry, no rash and no petechia
Psychiatric Exam
Psychiatric Exam: anxious
Course
Orders/Labs/Results
Orders:
Orders
08/15/24 21:14
Glucagon [GlucaGen] 1 mg IV NOW STA
08/15/24 21:18
Complete Blood Count/With Diff Urgent
Comprehensive Metabolic Panel Urgent
08/15/24 21:51
Glucagon [GlucaGen] 1 mg IV NOW STA
08/15/24 21:52
Glucagon [GlucaGen] 1 mg .ROUTE .STK-MED ONE
08/15/24 22:11
HYDROmorphone [Dilaudid] 0.25 mg IV PACU-Q5MPRN PRN
Meperidine [Demerol] 12.5 mg IV PACU-Q5MPRN PRN
Morphine Sulfate 1 mg IV PACU-Q5MPRN PRN
Ondansetron Injectable [Zofran] 4 mg IV PACU-ONCEPRN PRN
Prochlorperazine [Compazine] 5 mg IV PACU-ONCEPRN PRN
Notify MD As Directed
Notify physician if: for SDS patients with known or suspected sleep obstructive sleep apnea, monitor in the
PACU.
Notify MD for any apneic/desaturation episodes
O2 Therapy [RESP] Urgent
Titrate/Wean O2 to maintain O2 sat greater than (%): 92
Special Instructions: -Provide supplemental oxygen to achieve O2 sat of 92% or greater.
-After 15 min, may wean O2 and discontinue if patient is able to maintain O2 sat of 92%
or greater during recovery period.
If patient is a discharge home, without oxygen therapy, notify anestheiologist if
unable to maintain O2 SAT of 92% or greater on room air for MD clearance.
Abnormal Lab Results
08/15/24
21:18
MCHC 32.0 L g/dL
(33.0-37.0)
RDW 15.7 H %
(11.5-14.5)
Monocytes % 9.8 H %
(1.7-9.3)
Carbon Dioxide 32 H mmol/L
(22-30)
BUN 21 H mg/dl
(9-20)
Glucose 103 H mg/dl
(70-99)
08/15/24 21:18
08/15/24 21:18
carbon dioxide slightly elevated. Very slight dehydration. Glucose slightly elevated.
Vital Signs
Initial and Last Documented VS:
Initial Vital Signs
Temp Pulse Resp BP Pulse Ox
97.9 F 64 18 128/70 97
08/15/24 20:59 08/15/24 20:59 08/15/24 20:59 08/15/24 20:59 08/15/24 20:59
Last Documented Vital Signs
Temp Pulse Resp BP Pulse Ox
97.9 F 65 18 128/70 96
08/15/24 20:59 08/15/24 21:05 08/15/24 21:05 08/15/24 21:05 08/15/24 21:05
MDM/Problems Addressed
Differential Diagnosis Includes:
Food bolus,
MDM/Problems Addressed:
This is a 79 year old male that comes in by ambulance with c/o food stuck in his throat.
Will check labs and give Glucagen. If this doesn't work will call the GI specialist.
Patient states that he is not feeling any better. Message sent to GI specialist. Awaiting to here back.
Spoke with Dr. Dr Ingram and she would like a second Dose of Glucagen and she will call the team in.
Chronic conditions affecting care:
Parkinson's
Acute Exacerbation and/or Progression of Chronic Illness:
NA
*Pulse Oximetry
Patient hypoxic: no
*EKG
Interpreted by ED Provider?: NA
Rate: EKG- N/A
*[employer] Interpretation
Rate: normal
Heart Rate: 66
*Critical Care Note
Total Time (30-74mins, 75-104mins- exclusive of procedures): Not Applicable
ED Attending Note
-
Portions of this chart may have been created with voice recognition software.� Occasional wrong word or��sound alike� substitutions may have occurred due to the inherent limitations of voice recognition software.
Discharge Plan
Departure
Patient Disposition: GI LAB
Date of Disposition: 08/15/24
Time of Disposition: 22:30
Presentation/result/management discussed w/ accepting MD/DO: Dr Ingram
Patient with high blood pressure during this ER visit?: No
Condition: Good
Covid-19: Not Applicable
Discharge Problem:
Esophageal food bolus
Prescriptions:
No Action
atorvastatin [Lipitor] 40 mg Tablet
40 mg PO DAILY
tamsulosin [Flomax] 0.4 mg Capsule
0.8 mg PO DAILY
mirtazapine 45 mg Tablet
45 mg PO HS
lorazepam 1 mg Tablet
1 mg PO BIDPRN PRN (Reason: anxiety)
cholecalciferol (vitamin D3) [Vitamin D3] 25 mcg (1,000 unit) Tablet
25 mcg PO DAILY
multivitamin Tablet
1 tab PO DAILY
buspirone 5 mg Tablet
5 mg PO BID
meloxicam 15 mg Tablet
15 mg PO DAILY
carbidopa-levodopa 50-200 mg Tablet Extended Release
1 tab PO QID@0800,12,1530,22
venlafaxine 150 mg Capsule,Extended Release 24hr
150 mg PO DAILY
naproxen sodium [Aleve] 220 mg Tablet
440 mg PO DAILY
magnesium oxide 500 mg magnesium Tablet
1,000 mg PO HS
gabapentin 100 mg Capsule
100 mg PO HS
fluticasone propionate 50 mcg/actuation [place],Suspension
1 spray INTRANASAL DAILY
coQ10 (ubiquinol) 200 mg Capsule
200 mg PO DAILY
omega 7-uxy-nwt-fish oil [Fish Oil] 1,000 mg (120 mg-180 mg) Capsule
1 cap PO DAILY
Aleve PM 220-25 mg Tablet
2 tab PO HS
melatonin 10 mg Tablet,Chewable
30 - 50 mg PO BID
Patient Comments:
01/25/2024, pt. takes before naps around 1530 and before bedtime.
Prevagen
1 cap PO DAILY
Sleepeez
2 tab PO BIDPRN PRN (Reason: sleep)
zolpidem [Ambien] 10 mg tablet
10 mg PO HS
gabapentin 300 mg capsule
300 mg PO BID Qty: 60 0RF
Interventions
Interventions:
*Risk Screen - Suicide Last Done: 08/15/24 20:59
*General Assessment Last Done: 08/15/24 20:59
*Neglect/Abuse Screening Last Done: 08/15/24 20:59
Discharge Date and Time
Print Language: FRISIAN
[2024-08-15] MEDS: GlucaGen 1 MG IV ×2 (21:22→21:53)
[2024-08-15 21:25] LABS: % Basophils 1.1 % (0-2); % Eosinophils 5.4 % (0-6); % Immature Granulocytes 0.5 % (0-0.5); % Lymphocytes 39.1 % (20.5-51.1); % Monocytes 9.8 % (1.7-9.3); % Neutrophils 44.1 % (42.2-75.2); Absolute Basophils 0.1 10^3/uL (0-0.2); Absolute Eosinophils 0.3 10^3/uL (0-0.7); Absolute Lymphocytes 2.2 10^3/uL (1.2-3.4); Absolute Monocytes 0.6 10^3/uL (0.1-0.6); Absolute Neutrophils 2.5 10^3/uL (1.4-6.5); Hematocrit 43.4 % (39.0-52.0); Hemoglobin 13.9 g/dL (13.0-18.0); Mean Corpuscular Hgb 29.3 pg (27.0-31.0); Mean Corpuscular Volume 91.4 fL (80.0-94.0); Mean Platelet Volume 9.3 fL (7.4-10.4); Nucleated Red Blood Cells % 0 % (-); Platelet Count 275 10^3/uL (130-400); Red Blood Cell Count 4.75 10^6/uL (4.70-6.10); Red Cell Dist. Width 15.7 % (11.5-14.5); White Blood Cell Count 5.7 10^3/uL (4.8-10.8)
[2024-08-15 21:41] LABS: ALT (SGPT) 11 U/L (0-50); AST (SGOT) 36 U/L (17-59); Albumin 4.2 g/dl (3.5-5.0); Alkaline Phosphatase 95 U/L (38-126); Blood Urea Nitrogen 21 mg/dl (9-20); Calcium 9.4 mg/dl (8.4-10.2); Carbon Dioxide 32 mmol/L (22-30); Chloride 103 mmol/L (98-107); Estimated Creatinine Clearance 71 ml/min; Glucose 103 mg/dl (70-99); Sodium 143 mmol/L (135-145); Total Bilirubin 0.5 mg/dl (0.2-1.3); Total Protein 6.7 g/dl (6.3-8.2); eGFR > 60.00
--- NOTE | 2024-08-15 22:45 | CON.GI ---
Consultation
-
Date/Time Consultation Requested: 08/15/2024, 9:30pm
Date/Time Consultation Performed: 08/15/2024, 10:30 pm
Requesting Provider: Tory Martinez
Performing Provider: Dr. Ingram
Reason for Consultation: food bolus
Medical History
Chief Complaint / HPI
Chief Complaint: food bolus
History of Present Illness:
79 yo M [facility] here with food bolus after eating [place] and green beans.
Painful, unable to tolerate secretions.
Never had EGD for food impaction before.
Given glucagon x1 in ER
Past Medical History
Past Medical History: Hypercholesterolemia and Psychiatric (anxiety, depression)
Past Surgical History: None
Social History
Tobacco: Non-Smoker
Alcohol: None
Drug: None
Family History
Family History: Reviewed & Not Pertinent
Allergies / Home Medications
Allergy/AdvReac Type Severity Reaction Status Date / Time
No Known Allergies Allergy Verified 07/10/24 05:26
�Medication �Instructions �Recorded
atorvastatin 40 mg tablet (Lipitor) 40 mg PO DAILY High Cholesterol 07/10/23
cholecalciferol (vitamin D3) 25 25 mcg PO DAILY Supplement 07/10/23
mcg (1,000 unit) tablet (Vitamin
D3)
lorazepam 1 mg tablet 1 mg PO BIDPRN PRN anxiety 07/10/23
mirtazapine 45 mg tablet 45 mg PO HS Mental Health/sleep 07/10/23
tamsulosin 0.4 mg capsule (Flomax) 0.8 mg PO DAILY Urinary Issue 07/10/23
Prevagen 1 cap PO DAILY 01/25/24
Sleepeez 2 tab PO BIDPRN PRN sleep 01/25/24
buspirone 5 mg tablet 5 mg PO BID 01/25/24
carbidopa ER 50 mg-levodopa 200 mg 1 tab PO QID@0800,12,1530,22 01/25/24
tablet,extended release
coQ10 (ubiquinol) 200 mg capsule 200 mg PO DAILY 01/25/24
fluticasone propionate 50 1 spray intranasal DAILY 01/25/24
mcg/actuation nasal
spray,suspension
gabapentin 100 mg capsule 100 mg PO HS 01/25/24
magnesium oxide 1,000 mg PO HS 01/25/24
melatonin 10 mg chewable tablet 30 - 50 mg PO BID 01/25/24
meloxicam 15 mg tablet 15 mg PO DAILY 01/25/24
multivitamin 1 tab PO DAILY 01/25/24
naproxen 220 mg-diphenhydramine 25 2 tab PO HS 01/25/24
mg tablet (Aleve PM)
naproxen sodium 220 mg tablet 440 mg PO DAILY 01/25/24
(Aleve)
omega 6-mbc-ukf-fish oil 1,000 mg 1 cap PO DAILY 01/25/24
(120 mg-180 mg) capsule (Fish Oil)
venlafaxine 150 mg 150 mg PO DAILY 01/25/24
capsule,extended release 24 hr
zolpidem 10 mg tablet (Ambien) 10 mg PO HS 01/25/24
gabapentin 300 mg capsule 300 mg PO BID #60 caps 07/10/24
Review of Systems
-
All other systems: A 12 pt ROS was Negative except as stated above in HPI
Vital Signs
Temp Pulse Resp BP Pulse Ox
97.9 F 65 18 128/70 96
08/15/24 20:59 08/15/24 21:05 08/15/24 21:05 08/15/24 21:05 08/15/24 21:05
Physical Exam
Exam
General: Well Developed
HEENT: Normocephalic
GI: Non Tender and Non Distended
Skin: Warm
Neuro: AO x 3
Results
WBC 5.7 10^3/uL (4.8-10.8) 08/15/24 21:18
Hgb 13.9 g/dL (13.0-18.0) 08/15/24 21:18
Hct 43.4 % (39.0-52.0) 08/15/24 21:18
MCV 91.4 fL (80.0-94.0) 08/15/24 21:18
Plt Count 275 10^3/uL (130-400) 08/15/24 21:18
Absolute Neuts (auto) 2.5 10^3/uL (1.4-6.5) 08/15/24 21:18
Sodium 143 mmol/L (135-145) 08/15/24 21:18
Potassium 5.0 mmol/L (3.5-5.1) 08/15/24 21:18
Chloride 103 mmol/L (98-107) 08/15/24 21:18
Carbon Dioxide 32 mmol/L (22-30) H 08/15/24 21:18
BUN 21 mg/dl (9-20) H 08/15/24 21:18
Creatinine 0.9 mg/dL (0.7-1.3) 08/15/24 21:18
Calcium 9.4 mg/dl (8.4-10.2) 08/15/24 21:18
Total Bilirubin 0.5 mg/dl (0.2-1.3) 08/15/24 21:18
AST 36 U/L (17-59) 08/15/24 21:18
ALT 11 U/L (0-50) 08/15/24 21:18
Alkaline Phosphatase 95 U/L (38-126) 08/15/24 21:18
Diagnostic Image Results:
Prior GI Procedures:
EGD:
Colonoscopy:
Assessment / Plan
-
79 yo M [employer] [employer] here with food bolus.
Recommended 2nd dose of glucagon in ER given.
Plan urgent EGD d/w pt r/a/b agreeable.
-
-
Thank you for consultation and allowing me to participate in the patient's care. Please call the implementation director GI physician during the after hours with any questions or concerns.
[2024-08-15 23:15] VITALS: BP 116/75; BP 128/70
[2024-08-15 23:30] VITALS: BP 116/66
[2024-08-15 23:45] VITALS: BP 111/67
[2024-08-16] VITALS: BP 131/84
--- NOTE | 2024-08-16 00:11 | HPS.HSE ---
Family Physician
-
Family Physician: NOT KNOW UNKNOWN - PT DOES
Chief Complaint
-
Choking
History of Present Illness
Patient is a 79y M with PMH significant for Parkinson's disease and anxiety who presents to ED complaining of coughing / choking after eating dinner this evening. Patient states that he ate two bites of turkey and green beans when he felt
discomfort in his throat / upper chest and was unable to swallow. He spit up a significant amount of mucus / saliva as he was unable to swallow. He was brought to the ED via EMS for further evaluation. He was taken to endo suite where EGD was
performed with removal of impacted food bolus. Patient tolerated the procedure well. He received general anesthesia during the procedure.
Post-op patient complained of expected throat discomfort and dry mouth. He had no available transportation and could not be discharged from the PACU.
Medical History
Past Medical History
Past Medical History: Reports Other
Additional Past Medical History:
Hyperlipidemia
Parkinson's Disease
Peripheral Neuropathy
BPH
Generalized Anxiety Disorder / Insomnia
Past Surgical History: Reports None
Social History
Tobacco: Non-smoker
Alcohol: None
Personal:
Living: Alone
Family History
Family History: Not pertinent
Allergies / Home Medications
Allergies reflects when Allergies were last updated in [facility].
Home Medications with original date entered in [facility]
Allergy/Medication List:
Allergies
Allergy/AdvReac Type Severity Reaction Status Date / Time
No Known Allergies Allergy Verified 07/10/24 05:26
Home Medications
atorvastatin 40 mg tablet (Lipitor) 40 mg PO DAILY High Cholesterol 07/10/23
lorazepam 1 mg tablet 1 mg PO BIDPRN PRN anxiety 07/10/23
mirtazapine 45 mg tablet 45 mg PO HS Mental Health/sleep 07/10/23
tamsulosin 0.4 mg capsule (Flomax) 0.8 mg PO DAILY Urinary Issue 07/10/23
carbidopa ER 50 mg-levodopa 200 mg tablet,extended release 1 tab PO QID@0800,12,1530,22 01/25/24
melatonin 10 mg chewable tablet 30 - 50 mg PO BID 01/25/24
naproxen 220 mg-diphenhydramine 25 mg tablet (Aleve PM) 2 tab PO HS 01/25/24
naproxen sodium 220 mg tablet (Aleve) 440 mg PO DAILY 01/25/24
zolpidem 10 mg tablet (Ambien) 10 mg PO HS 01/25/24
diazepam 08/16/24
opicapone 50 mg capsule 50 mg PO HS 08/16/24
pregabalin 08/16/24
Review of Systems
-
History Source: Patient
A 12 point ROS was completed and negative except as noted: Yes
Constitutional: Denies Fever or Chills
EENT: Reports Sore Throat
Respiratory: Denies Cough or Trouble Breathing
Cardiac: Reports Chest Pain; Denies Palpitations
Abdomen/GI: Denies Abdominal Pain, Nausea, Vomiting or Diarrhea
: Denies Dysuria or Frequency
Neurological: Denies Dizzy or Headache
Psych: Denies Depression or Anxiety
Physical Exam
Vital Signs
Vital Signs
Temp Pulse Resp BP Pulse Ox
97.7 F 69 20 131/84 94
08/15/24 23:15 08/16/24 00:00 08/16/24 00:00 08/16/24 00:00 08/16/24 00:00
Physical Exam
General: Other (79y M in no acute distress. Flat affect.)
HEENT: Moist mucous membranes and PERRLA
Respiratory: Clear; No Wheezes, Rales or Rhonchi
Cardiac: S1/S2 and Regular Rhythm; No Murmur
GI: Soft, Non Tender, Non Distended and Normal Bowel Sounds
Musculoskeletal: No Clubbing, No Cyanosis and No Edema
Neuro: AO x 3
Laboratory Results
-
08/15/24 21:18
08/15/24 21:18
Laboratory Results
Total Bilirubin 0.5 mg/dl (0.2-1.3) 08/15/24 21:18
AST 36 U/L (17-59) 08/15/24 21:18
ALT 11 U/L (0-50) 08/15/24 21:18
Alkaline Phosphatase 95 U/L (38-126) 08/15/24 21:18
Impression/Plan
-
A/P: Patient is a 79y M with PMH significant for Parkinson's Disease who presents to ED complaining of coughing / choking after eating dinner.
Food Impaction
- Resolved. Impacted food bolus removed by GI.
- Supportive care post-procedure including PPI, Carafate, liquid diet, etc.
- Speech eval given Parkinsonism / choking episode - ? swallow dysfunction.
Parkinson's Disease
- Stable. Continue usual Sinemet dosing with no changes.
Anxiety / Insomnia
Polypharmacy
- Patient is on a regimen of multiple benzodiazepines, multiple sleep aides, etc.
- Will simplify regimen during hospital stay.
- Would review med duplications /polypharmacy with PCP as an outpatient.
BPH
- Stable. Continue tamsulosin.
- Bladder scan protocol.
DVT Prophylaxis: SCDs
Code Status: Full
Dispo: Patient unable to be discharged as he has no available transportation. Unable to arrange [employer] transportation s/p general anesthesia. Case Managemenjose whitney in AM for discharge planning / transportation.
--- NOTE | 2024-08-16 01:00 | PTCARENOTE ---
Pt adm to unit from PACU, VSS, c/o of sore throat, HP notified for Chloraseptic spray. Pt is is fixated on what medications he takes at HS but informed pt r/t to home medications list that he will only order necessary medications at this time. RN
reviewed with pt and informed he he will restart his medication regiment after d/c. Pt bladder scanned for 312ml after void, he reports he has difficulty voiding but r/t to unsteadiness it was explained he would have to be assisted with using the
urinal in bed vs standing. Pt oriented to unit and hospital policies, able to use call gong appropriately.
[2024-08-16 01:09] VITALS: BP 146/78; BMI 29.1
[2024-08-16] MEDS: ATIVAN 1 MG PO (01:18)
[2024-08-16] MEDS: REMERON 45 MG PO (01:18)
[2024-08-16] MEDS: TYLENOL 650 MG PO (01:36)
[2024-08-16] MEDS: SINEMET CR 50/200 (EXTENDED RELEASE) 1 TABLET PO ×2 (01:37→09:04)
[2024-08-16] MEDS: CHLORASEPTIC/SORE THROAT SPRAY 1 SPRAY PO (02:23)
--- NOTE | 2024-08-16 04:39 | PTCARENOTE ---
Pt impulsive throughout shift attempting to get OOB to use urinal. Pt at one point agitated, confused and combative attempting to stand and use urinal. Pt redirected and re-educated on safety and appropriate interactions with staff. Pt cont void
with assistance and bed alarm activated.
[2024-08-16 07:09] LABS: Blood Urea Nitrogen 21 mg/dl (9-20); Calcium 9.3 mg/dl (8.4-10.2); Carbon Dioxide 26 mmol/L (22-30); Chloride 106 mmol/L (98-107); Estimated Creatinine Clearance 80 ml/min; Glucose 114 mg/dl (70-99); Potassium 4.9 mmol/L (3.5-5.1); Sodium 141 mmol/L (135-145); eGFR > 60.00
[2024-08-16 07:20] VITALS: BP 150/76
[2024-08-16] MEDS: CARAFATE SUSPENSION 1 GM PO (07:57)
[2024-08-16] MEDS: FLOMAX 0.8 MG PO (07:58)
[2024-08-16] MEDS: NSS (PRESERVATIVE FREE) 10 ML IV (07:59)
[2024-08-16] MEDS: LIPITOR 40 MG PO (07:59)
[2024-08-16] MEDS: PROTONIX IV 40 MG IV (07:59)
[2024-08-16 08:40] VITALS: PULSE 79; O2SAT 95
[2024-08-16 08:45] VITALS: BP 153/81; PULSE 77
--- NOTE | 2024-08-16 09:15 | W.PN.UPDATE ---
Update Note
Progress Note Update
ok to advance from full liquids to regular diet
needs to ensure to chew meat carefully as still has narrowing from Vishnu kyle present
--- NOTE | 2024-08-16 09:33 | PTOTSP ---
Clinical Swallow Evaluation
79M with admission for esophageal obstruction/choking incident while eating dinner p/w clinical s/s of an impaired oropharyngeal swallow. Aspiration risk is increased 2/2 recent choking incident related to esophageal obstruction and known
Parkinson's diagnosis. Education provided on safe swallowing strategies including: soft and bite sized solids; alternating bites and sips; taking pills whole ONE at a time with water or applesauce; small bites; single sips; and slow rate. Patient
with growing compliance in regards to all strategies, and will likely continue to require more education on swallow impairment and ways to reduce overall aspiration/choking risk.
Recommendations:
1. Soft and bite sized (IDDSI 6), thin liquids
2. Pills whole ONE AT A TIME w/ thin liquid or applesauce
3. Safe swallowing strategies: alternating bites and sips; taking pills whole ONE at a time with water or applesauce; small bites; single sips; and slow rate
4. Reflux precautions - upright after meals
5. [employer] service will continue to follow
--- NOTE | 2024-08-16 09:36 | W.DS.TRANS ---
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
-
Discharge Instructions:
Discharge Diagnosis/Procedures Food impaction
Diet Other diet
Additional Diets soft and bite sized diet
Activity As tolerated
Driving Restrictions As prior to admission
Bathing Restrictions None
Instructions:
Stand-Alone Forms:
Changes to Home Medications: No
Discharge Medications:
DC Medications w/original date entered in [facility]
atorvastatin 40 mg tablet (Lipitor) 40 mg PO DAILY High Cholesterol 07/10/23
lorazepam 1 mg tablet 1 mg PO BIDPRN PRN anxiety 07/10/23
mirtazapine 45 mg tablet 45 mg PO HS Mental Health/sleep 07/10/23
tamsulosin 0.4 mg capsule (Flomax) 0.8 mg PO DAILY Urinary Issue 07/10/23
carbidopa ER 50 mg-levodopa 200 mg tablet,extended release 1 tab PO QID@0800,12,1530,22 01/25/24
melatonin 10 mg chewable tablet 30 - 50 mg PO BID 01/25/24
naproxen 220 mg-diphenhydramine 25 mg tablet (Aleve PM) 2 tab PO HS 01/25/24
naproxen sodium 220 mg tablet (Aleve) 440 mg PO DAILY 01/25/24
zolpidem 10 mg tablet (Ambien) 10 mg PO HS 01/25/24
esomeprazole magnesium 40 mg capsule,delayed release (Nexium) 40 mg PO BID #60 caps 08/16/24
opicapone 50 mg capsule 50 mg PO HS 08/16/24
pregabalin 08/16/24
sucralfate 1 gram tablet 1 g PO BID #20 tabs 08/16/24
Home Medication Changes
Pending Results: No
--- NOTE | 2024-08-16 09:41 | W.PN.HOSP.TC ---
Today's Communication/Plan
-
Discharge
Assessment / Plan
Assessment / Plan
Gen-AAOx3, NAD
HEENT-NC, AT, anicteric, clear oral mm
Neck-supple
CV-reg, no M, +S1/S2
Lungs-clear B/L
Abd-soft, NT, ND
Ext-no edema
Musculoskeletal-no cyanosis, clubbing
Skin-warm and dry
Neuro-grossly non-focal
Psych-calm, cooperative
Food impaction -resolved with EGD and disimpaction. Etiology was moderate Schatzki's ring and low-grade narrowing noted on EGD.
Soft diet on discharge. Nexium and Carafate twice daily per GI. Outpatient follow-up.
Parkinson's disease - stable on meds.
BPH
Dispo - medically stable for discharge home. Outpatient follow-up.
32 min spent in discharge process.
Anticipated Discharge: Today
Subjective/Interval History
-
Date of Service: August 16, 2024
Patient seen and examined. No complaints.
Objective Data
-
Labs:
Laboratory Results
08/15/24 08/16/24
21:18 06:30
Sodium 143 141
Potassium 5.0 4.9
Chloride 103 106
Carbon Dioxide 32 H 26
BUN 21 H 21 H
Creatinine 0.9 0.8
Glucose 103 H 114 H
Calcium 9.4 9.3
Total Bilirubin 0.5
AST 36
ALT 11
Alkaline Phosphatase 95
Vital Signs:
Vital Signs
Temp Pulse Resp BP Pulse Ox
98.2 F 68 18 150/76 93
08/16/24 07:20 08/16/24 07:20 08/16/24 07:20 08/16/24 07:20 08/16/24 07:20
I&O
08/15/24 08/16/24 08/17/24
06:59 06:59 06:59
Intake Total 140 / 140
Output Total 250 / 250
Balance -110 / -110
Review of Systems
-
History Source: Patient
All other systems: Reviewed and negative
--- NOTE | 2024-08-16 09:43 | W.DS.TRANS ---
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
-
Discharge Instructions:
Discharge Diagnosis/Procedures Food impaction
Diet Other diet
Additional Diets soft and bite sized diet
Activity As tolerated
Driving Restrictions As prior to admission
Bathing Restrictions None
Instructions:
Stand-Alone Forms:
Changes to Home Medications: No
Discharge Medications:
DC Medications w/original date entered in [facility]
atorvastatin 40 mg tablet (Lipitor) 40 mg PO DAILY High Cholesterol 07/10/23
lorazepam 1 mg tablet 1 mg PO BIDPRN PRN anxiety 07/10/23
mirtazapine 45 mg tablet 45 mg PO HS Mental Health/sleep 07/10/23
tamsulosin 0.4 mg capsule (Flomax) 0.8 mg PO DAILY Urinary Issue 07/10/23
carbidopa ER 50 mg-levodopa 200 mg tablet,extended release 1 tab PO QID@0800,12,1530,22 01/25/24
melatonin 10 mg chewable tablet 30 - 50 mg PO BID 01/25/24
naproxen 220 mg-diphenhydramine 25 mg tablet (Aleve PM) 2 tab PO HS 01/25/24
naproxen sodium 220 mg tablet (Aleve) 440 mg PO DAILY 01/25/24
zolpidem 10 mg tablet (Ambien) 10 mg PO HS 01/25/24
esomeprazole magnesium 40 mg capsule,delayed release (Nexium) 40 mg PO BID #60 caps 08/16/24
opicapone 50 mg capsule 50 mg PO HS 08/16/24
pregabalin 08/16/24
sucralfate 1 gram tablet 1 g PO BID #20 tabs 08/16/24
Home Medication Changes
Pending Results: No
--- NOTE | 2024-08-16 09:49 | CM ---
Reviewed the chart notes and spoke with the patient's caregiver at the bedside. The patient resides alone in a second floor condo with elevator access. There are no steps to enter. The patient has a rolling walker, cane, and shower chair. The
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 The patient has had [employer] [facility] in the past. The patient's pharmacy of choice is the [facility]. The patient has meals delivered on Tuesdays through [employer]. CM continues to
be available to patient/family and is monitoring medical plan for needs at discharge.
Plan: Discharge to home today. No needs identified. Patient's caregiver will provide transportation.
== END 2024-08-16 10:35 | disposition home or self-care (01) ==
LOC: SDS 00:28
PROVIDERS: Clinical Nurse Specialist Family Health; Hospitalist; EMERGENCY PHYSICIAN Emergency Medicine
DX: T18.128A Food in esophagus causing other injury, initial encounter (principal); T18.108A Unspecified foreign body in esophagus causing other injury, initial encounter; W44.F3XA Food entering into or through a natural orifice, initial encounter; K22.2 Esophageal obstruction; K44.9 Diaphragmatic hernia without obstruction or gangrene
CPT/HCPCS: 43247; 80048; 80053; 85025; 92610; 96374; 96376; 97163; 97167; 99284; G0378; J1610

== ENCOUNTER → 2024-08-19 23:11 | Day surgery (SDC) | payer MEDICARE, OTHER, SELFPAY ==
[2024-08-19 21:31] VITALS: BP 146/91
[2024-08-19 21:52] VITALS: BMI 29.5
--- NOTE | 2024-08-19 21:52 | ED.GENMED ---
History of Present Illness
General
Chief Complaint: Swallowing Problem
Source: patient
Exam Limitations: none
Time Seen by Provider: 08/19/24 21:36
History of Present Illness
History of Present Illness:
79-year-old male complaining of food impaction. Chicken or turkey. Occurred around 8 PM. Cannot swallow secretions. Exact same sensation that he had on August 15 when he had a upper endoscopy and impaction removal. He does have a known
Schatzki's ring. Also history of Parkinson's disease. No shortness of breath or other complaints.
Past History
Past History
ED Past Medical History: Hypercholesterolemia, Psychiatric (Anxiety, Depression) and Other (Parkinson disease)
ED Past Surgical History: Other
Social History
Tobacco: Non-smoker
Alcohol: None
Drug: None
Personal:
Living: alone
Employment: Other
Family History
Family History: Other
Review of Systems
Review of Systems
All Other Systems: Not applicable
Constitutional: Denies fever
Respiratory: Reports no symptoms
Cardiac: Reports no symptoms
Phy Exam
Physical Exam
Physical Exam:
GENERAL: Alert and oriented. Nontoxic but appears uncomfortable.
EYE: Orbits normal.
NECK: Supple, no significant adenopathy.
ENT: Pharynx without erythema. Following a emesis bag. Cannot handle secretions but no drooling or stridor
CARDIAC: Regular rate and rhythm without any obvious murmurs.
LUNGS: Clear breath sounds,normal
ABDOMEN: Soft, without focal tenderness or distention
NEUROLOGICAL: Alert and oriented , grossly non-focal
SKIN: Warm and dry
PSYCH: Normal and appropriate interaction.
Course
Orders/Labs/Results
Orders:
Orders
08/19/24 21:42
IV Insert/Care/Rem.- Treatment PRN
Vital Signs
Initial and Last Documented VS:
Initial Vital Signs
Temp Pulse Resp BP Pulse Ox
97.7 F 90 18 146/91 96
08/19/24 21:31 08/19/24 21:31 08/19/24 21:31 08/19/24 21:31 08/19/24 21:31
Last Documented Vital Signs
Temp Pulse Resp BP Pulse Ox
97.2 F 66 18 146/91 99
08/19/24 23:55 08/19/24 23:58 08/19/24 21:31 08/19/24 21:31 08/19/24 23:58
MDM/Problems Addressed
Differential Diagnosis Includes:
Gastroenterology called immediately. Will require upper endoscopy.
*Pulse Oximetry
Patient hypoxic: no
*Critical Care Note
Total Time (30-74mins, 75-104mins- exclusive of procedures): Not Applicable
Data Reviewed
Review of Other/Old Records Reveals: Labs, Records, Operative Reports (Upper endoscopy) and Discharge Summary
Update Note
Update Note:
2206.... Callback from GI. They will call the team in.
ED Attending Note
-
Portions of this chart may have been created with voice recognition software.� Occasional wrong word or��sound alike� substitutions may have occurred due to the inherent limitations of voice recognition software.
Discharge Plan
Departure
Patient Disposition: Admit
Date of Disposition: 08/19/24
Time of Disposition: 22:09
Admit to: GI lab
Presentation/result/management discussed w/ accepting MD/DO: Gastroenterology
Discharge Problem:
Esophageal food impaction, History of Schatzki's ring
Interventions
Interventions:
*Risk Screen - Suicide Last Done: 08/19/24 21:31
*General Assessment Last Done: 08/19/24 21:31
*Neglect/Abuse Screening Last Done: 08/19/24 21:31
*ED COVID-19 Vaccine History Last Done: 08/19/24 21:31
*Nursing Disposition Last Done: 08/19/24 23:11
ED-EENT Assessment Last Done: 08/19/24 21:57
SF-Nhccoa-Qrbdhbvrwe Assessment Last Done: 08/19/24 23:08
ED- Pulmonary Assessment Last Done: 08/19/24 23:08
ED- Neurological Assessment Last Done: 08/19/24 21:57
ED Swallowing Screen Last Done: 08/19/24 21:57
Discharge Date and Time
Discharge Date/Time: 08/19/24 23:12
--- NOTE | 2024-08-19 22:44 | CON.GI ---
Consultation
-
Date/Time Consultation Performed: 08/19/24
Performing Provider: Hugo Best MD
Reason for Consultation: food impaction
Medical History
Chief Complaint / HPI
Chief Complaint: food impaction
History of Present Illness:
The patient is a 79-year-old male with past medical history as noted with no impaction. He was recently here 5 days ago with food impaction, was removed at that point with Schatzki's ring. Was advised to have dietary modifications pending repeat
EGD, though denied again had therapy with sudden onset of dysphagia and food impaction. Is currently unable to tolerate his secretions. [place] any significant chest pain or shortness of breath.
Past Medical History
Past Medical History: Other (Hyperlipidemia Parkinson's Disease Peripheral Neuropathy BPH Generalized Anxiety Disorder / Insomnia)
Social History
Tobacco: Non-Smoker
Alcohol: None
Family History
Family History: Reviewed & Not Pertinent
Allergies / Home Medications
Allergy/AdvReac Type Severity Reaction Status Date / Time
No Known Allergies Allergy Verified 08/19/24 21:33
�Medication �Instructions �Recorded
atorvastatin 40 mg tablet (Lipitor) 40 mg PO DAILY@0630 High 07/10/23
Cholesterol
lorazepam 1 mg tablet 1 mg PO TID@0630,1400,2100 07/10/23
mirtazapine 45 mg tablet 45 mg PO HS Mental Health/sleep 07/10/23
tamsulosin 0.4 mg capsule (Flomax) 0.8 mg PO DAILY@0630 Urinary Issue 07/10/23
carbidopa ER 50 mg-levodopa 200 mg 1 tab PO QID@0630,11,1530,21 01/25/24
tablet,extended release
melatonin 10 mg chewable tablet 10 mg PO DAILY@1530 01/25/24
naproxen 220 mg-diphenhydramine 25 2 tab PO HS 01/25/24
mg tablet (Aleve PM)
zolpidem 10 mg tablet (Ambien) 10 mg PO HS 01/25/24
opicapone 50 mg capsule 50 mg PO HS 08/16/24
pregabalin 100 mg capsule 100 mg PO TID@0630,1100,1530 ##0 08/16/24
sucralfate 1 gram tablet 1 g PO BID #20 tabs 08/16/24
venlafaxine 150 mg 150 mg PO DAILY@0630 08/19/24
capsule,extended release 24 hr
Review of Systems
-
All other systems: A 12 pt ROS was Negative except as stated above in HPI
Vital Signs
Temp Pulse Resp BP Pulse Ox
97.7 F 90 18 146/91 96
08/19/24 21:31 08/19/24 21:31 08/19/24 21:31 08/19/24 21:31 08/19/24 21:31
Physical Exam
Exam
General: NAD
Abdomen: normal bowel sounds, soft, no tenderness, no masses or bruits, no ascites
Results
Diagnostic Image Results:
Prior GI Procedures:
EGD:
Colonoscopy:
Assessment / Plan
-
1. Food impaction: With known Schatzki's ring, and recent food impaction, unable to currently tolerate secretions. Will plan EGD now. Again discussed dietary modifications and will follow-up as previously planned for repeat EGD with dilation in
the future.
-
-
Thank you for consultation and allowing me to participate in the patient's care. Please call the stone lathe operator GI physician during the after hours with any questions or concerns.
[2024-08-20] VITALS: BP 129/70
[2024-08-20 00:15] VITALS: BP 139/75
[2024-08-20 00:30] VITALS: BP 133/82
[2024-08-20 00:48] VITALS: BP 141/76
== END ==
LOC: EMR 21:20 → SDS 23:11
PROVIDERS: EMERGENCY PHYSICIAN Emergency Medicine
DX: T18.128A Food in esophagus causing other injury, initial encounter (principal); W44.F3XA Food entering into or through a natural orifice, initial encounter; K22.2 Esophageal obstruction
CPT/HCPCS: 43247; 99284

== ENCOUNTER → 2024-09-03 13:10 | Outpatient (REF) | payer MEDICARE, OTHER, SELFPAY ==
[2024-09-03 13:47] LABS: % Eosinophils 3.3 % (0-6); % Immature Granulocytes 0.1 % (0-0.5); % Lymphocytes 42.7 % (20.5-51.1); % Monocytes 6.5 % (1.7-9.3); % Neutrophils 46.4 % (42.2-75.2); Absolute Basophils 0.1 10^3/uL (0-0.2); Absolute Eosinophils 0.2 10^3/uL (0-0.7); Absolute Lymphocytes 2.9 10^3/uL (1.2-3.4); Absolute Monocytes 0.5 10^3/uL (0.1-0.6); Absolute Neutrophils 3.2 10^3/uL (1.4-6.5); Hematocrit 43.9 % (39.0-52.0); Hemoglobin 14.2 g/dL (13.0-18.0); Mean Corp Hgb Conc. 32.3 g/dL (33.0-37.0); Mean Corpuscular Hgb 29.4 pg (27.0-31.0); Mean Corpuscular Volume 90.9 fL (80.0-94.0); Mean Platelet Volume 9.5 fL (7.4-10.4); Nucleated Red Blood Cells % 0 % (-); Platelet Count 316 10^3/uL (130-400); Red Blood Cell Count 4.83 10^6/uL (4.70-6.10); Red Cell Dist. Width 15.7 % (11.5-14.5); White Blood Cell Count 6.9 10^3/uL (4.8-10.8)
[2024-09-03 14:00] LABS: ALT (SGPT) 12 U/L (0-50); AST (SGOT) 34 U/L (17-59); Alkaline Phosphatase 105 U/L (38-126); Blood Urea Nitrogen 23 mg/dl (9-20); Calcium 9.6 mg/dl (8.4-10.2); Carbon Dioxide 32 mmol/L (22-30); Chloride 102 mmol/L (98-107); Glucose 128 mg/dl (70-99); HDL Cholesterol 52 mg/dl; LDL Cholesterol, Calculated 133 mg/dl; Potassium 4.6 mmol/L (3.5-5.1); Sodium 139 mmol/L (135-145); Total Bilirubin 0.4 mg/dl (0.2-1.3); Total Cholesterol 206 mg/dl (50-199); Total Protein 6.5 g/dl (6.3-8.2); Triglyceride 109 mg/dl (10-149); Very Low Density Lipoprotein 21 mg/dl (0-30); eGFR > 60.00
[2024-09-03 14:30] LABS: TSH Reflex To Free T4 1.29 uIU/ml (0.47-4.68)
== END ==
LOC: REG 13:10
PROVIDERS: ATTENDING PHYSICIAN Nurse Practitioner Family
DX: Z00.00 Encounter for general adult medical examination without abnormal findings (principal); Z13.29 Encounter for screening for other suspected endocrine disorder; E78.2 Mixed hyperlipidemia
CPT/HCPCS: 36415; 80053; 80061; 84443; 85025

== ENCOUNTER → 2024-10-30 14:35 | Outpatient (REF) | payer MEDICARE, OTHER, SELFPAY | LOC: HWRAD 14:35 | PROVIDERS: ATTENDING PHYSICIAN Internal Medicine Critical Care Medicine; FAMILY PHYSICIAN Nurse Practitioner Family | DX: R06.09 Other forms of dyspnea (principal); J84.10 Pulmonary fibrosis, unspecified | CPT/HCPCS: 71250 ==

== ENCOUNTER 2025-02-13 03:00 | Day surgery (SDC) | payer MEDICARE, OTHER, SELFPAY ==
[2025-02-12 22:43] VITALS: BP 142/74
[2025-02-12 22:45] VITALS: BP 142/74
[2025-02-12 23:00] VITALS: BP 139/69
--- NOTE | 2025-02-12 23:04 | ED.GENMED ---
History of Present Illness
General
Chief Complaint: Throat Problem
Source: patient
Exam Limitations: none
Time Seen by Provider: 02/12/25 23:03
Nursing documentation reviewed up to this point in time: agreed with
History of Present Illness
History of Present Illness:
Patient is a 79-year-old man with a past medical history of Parkinson's disease who reports that a piece of dried chicken is stuck in his throat. Patient reports that it occurred about 3 hours ago. Patient reports he has had trouble swallowing his
saliva. He cannot keep any liquids down. Patient feels as though he cannot breathe.
Past History
Past History
ED Past Medical History: Hypercholesterolemia, Psychiatric (Anxiety, Depression) and Other (Parkinson disease)
ED Past Surgical History: Other
Social History
Tobacco: Non-smoker
Alcohol: None
Drug: None
Personal:
Living: alone
Employment: Other
Family History
Family History: Other
Review of Systems
Review of Systems
Allergies reviewed?: Yes
All Other Systems: ROS reviewed and negative except as documented in HPI and ROS
Constitutional: Reports no symptoms
EENT: Reports other
Respiratory: Reports trouble breathing
Cardiac: Reports no symptoms
ABD/GI: Reports no symptoms
: Reports no symptoms
Musculoskeletal: Reports no symptoms
Skin: Reports no symptoms
Neurological: Reports no symptoms
Endocrine: Reports no symptoms
Hematologic/Lymphatic: Reports no symptoms
Psychiatric: Reports no symptoms
Phy Exam
Physical Exam
Physical Exam:
Physical Exam
General: Patient appears anxious, holding his throat
Neck: supple. Mild pooling of saliva
Heart: s1/s2 regular rate and rhythm, no murmur. equal radial pulses.
Lungs: no acute respiratory distress. clear bilaterally
Abdomen: normal bowel sounds. not tender. no CVAT
Neuro: alert and oriented. no focal neurological deficits
Skin: no rash
Psychiatric: well kept. interactive and cooperative
Extremities: no edema. no calf tenderness. negative homans. good distal pulses
Course
Orders/Labs/Results
Orders:
Orders
02/12/25 23:11
Glucagon [GlucaGen] 1 mg IM NOW STA
02/12/25 23:13
Glucagon [GlucaGen] 1 mg IV NOW STA
02/13/25 00:59
Consult Gastroenterology [GASTROINTESTINAL CONSULT] Urgent
Consulting Provider: Marilia Pinzon
Was physician already notified: Yes
Reason for consult: food bolus
02/13/25 01:00
Glucagon [GlucaGen] 1 mg IV NOW STA
02/13/25 01:16
HYDROmorphone [Dilaudid] 0.25 mg IV PACU-Q5MPRN PRN
Morphine Sulfate 1 mg IV PACU-Q5MPRN PRN
Ondansetron Injectable [Zofran] 4 mg IV PACU-ONCEPRN PRN
Notify MD As Directed
Notify physician if: for SDS patients with known or suspected sleep obstructive sleep apnea, monitor in the
PACU.
Notify MD for any apneic/desaturation episodes
O2 Therapy [RESP] Urgent
Titrate/Wean O2 to maintain O2 sat greater than (%): 92
Special Instructions: -Provide supplemental oxygen to achieve O2 sat of 92% or greater.
-After 15 min, may wean O2 and discontinue if patient is able to maintain O2 sat of 92%
or greater during recovery period.
If patient is a discharge home, without oxygen therapy, notify anestheiologist if
unable to maintain O2 SAT of 92% or greater on room air for MD clearance.
02/13/25 01:30
Normosol (Mult Electrolytes) [Normosol-R/Plasmalyte-A] 1,000 ml IV PER PROTOCOL
02/13/25 02:00
Flush (0.9% Sodium Chloride) [Flush (Nss)] See Dose Instructions IV PER PROTOCOL
Vital Signs
Initial and Last Documented VS:
Initial Vital Signs
Temp Pulse Resp BP Pulse Ox
98.2 F 64 20 142/74 95
02/12/25 22:43 02/12/25 22:43 02/12/25 22:43 02/12/25 22:43 02/12/25 22:43
Last Documented Vital Signs
Temp Pulse Resp BP Pulse Ox
98.2 F 64 20 141/75 96
02/12/25 22:43 02/13/25 01:12 02/13/25 01:12 02/13/25 00:00 02/13/25 01:12
MDM/Problems Addressed
Differential Diagnosis Includes:
Complete esophageal obstruction due to food impaction, partial esophageal obstruction due to food aspiration,
MDM/Problems Addressed:
Patient presents with difficulty swallowing after feeling as though chicken is stuck in his throat
Chronic conditions affecting care:
Schiatzki ring
Acute Exacerbation and/or Progression of Chronic Illness:
Patient likely has acute on chronic esophageal obstruction
*Pulse Oximetry
Patient hypoxic: no
*EKG
Interpreted by ED Provider?: NA
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
Rate: normal
Interpretation: normal
Rhythm: sinus
*Critical Care Note
Total Time (30-74mins, 75-104mins- exclusive of procedures): Not Applicable
Data Reviewed
Review of Other/Old Records Reveals: Progress Notes (Dr. Best from GI progress note reviewed from 09/08 which explains that patient has schiatzki ring)
Source: patient
Patient Management
Social determinants of health affecting care: Living situation and Strong social support
Escalation/DeEscalation of care consider admission/obs:
Patient will go to the GI lab for likely food impaction
ED Attending Note
-
Portions of this chart may have been created with voice recognition software.� Occasional wrong word or��sound alike� substitutions may have occurred due to the inherent limitations of voice recognition software.
Discharge Plan
Departure
Patient Disposition: GI LAB
Date of Disposition: 02/13/25
Time of Disposition: 00:56
Admit to: GI lab
Admit to doctor: Dr Pinzon
Presentation/result/management discussed w/ accepting MD/DO: GI
Patient with high blood pressure during this ER visit?: Yes
Condition: Good
Covid-19: Not Applicable
Discharge Problem:
Food impaction of esophagus
Prescriptions:
No Action
atorvastatin [Lipitor] 40 mg Tablet
40 mg PO DAILY@0630
tamsulosin [Flomax] 0.4 mg Capsule
0.8 mg PO DAILY@0630
mirtazapine 45 mg Tablet
45 mg PO HS
lorazepam 1 mg Tablet
1 mg PO TID@0630,1400,2100
carbidopa-levodopa 50-200 mg Tablet Extended Release
1 tab PO QID@0630,11,1530,21
Aleve PM 220-25 mg Tablet
2 tab PO HS
melatonin 10 mg Tablet,Chewable
10 mg PO DAILY@1530
Patient Comments:
01/25/2024, pt. takes before naps around 1530 and before bedtime.
zolpidem [Ambien] 10 mg tablet
10 mg PO HS
pregabalin 100 mg Capsule
100 mg PO TID@0630,1100,1530 Qty: 0
opicapone 50 mg Capsule
50 mg PO HS
sucralfate 1 gram tablet
1 g PO BID Qty: 20 0RF
venlafaxine 150 mg capsule,extended release 24hr
150 mg PO DAILY@0630
Referrals:
Jo-Ann Jara CRNP [Family Provider, Family Practice]
Interventions
Interventions:
*Risk Screen - Suicide Last Done: 02/12/25 22:43
*General Assessment Last Done: 02/12/25 22:43
*Neglect/Abuse Screening Last Done: 02/12/25 22:43
*ED- Fall Risk Assessment Last Done: 02/12/25 22:43
*ED COVID-19 Vaccine History Last Done: 02/12/25 22:43
*Nursing Disposition Last Done: 02/13/25 02:14
ED-EENT Assessment Last Done: 02/12/25 23:47
ED- Pulmonary Assessment Last Done: 02/12/25 23:47
Discharge Date and Time
Discharge Date/Time: 02/13/25 02:14
Print Language: OCCITAN
[2025-02-12] MEDS: GlucaGen 1 MG IV (23:40)
[2025-02-13] VITALS (7 sets, daily range): BP systolic 130–151; BP diastolic 72–84
[2025-02-13] MEDS: GlucaGen 1 MG IV (01:03)
--- NOTE | 2025-02-13 02:02 | CON.GI ---
Consultation
-
Date/Time Consultation Requested: 02/13/25
Date/Time Consultation Performed: 02/13/25
Requesting Provider:
Performing Provider:
Reason for Consultation: Food impaction
Medical History
Chief Complaint / HPI
Chief Complaint: food bolus
History of Present Illness:
This is a 79-year-old male with past medical history Hyperlipidemia, Parkinson's Disease, ambulatory dysfunction, peripheral Neuropathy, BPH, Generalized Anxiety Disorder / Insomnia, Schatzki ring with h/o food impaction 08/15/2024 and 08/19/2024
presented to the emergency room with feeling that food is stuck. He says he ate chicken for dinner around 6 and after a couple of bites he felt that he could not swallow his secretions or water and felt the food stuck and presented to the emergency
room. He has received 2 doses of glucagon but still felt that it was stuck and could not swallow his secretions. He had been told after his prior two endoscopies to schedule an endoscopy for dilatation of Schatzki's ring but unfortunately he had
not followed up and he also has not really been taking PPI as an outpatient. He currently denies any abdominal pain.
Past Medical History
Past Medical History: Other (Hyperlipidemia, Parkinson's Disease, Peripheral Neuropathy, BPH, Generalized Anxiety Disorder / Insomnia, Schatzki ring with h/o food impaction)
Past Surgical History: None
Social History
Tobacco: Non-Smoker
Alcohol: Former
Drug: None
Living: Alone
Family History
Family History: Reviewed & Not Pertinent
Allergies / Home Medications
Allergy/AdvReac Type Severity Reaction Status Date / Time
No Known Allergies Allergy Verified 08/19/24 21:33
�Medication �Instructions �Recorded
atorvastatin 40 mg tablet (Lipitor) 40 mg PO DAILY@0630 High 07/10/23
Cholesterol
lorazepam 1 mg tablet 1 mg PO TID@0630,1400,2100 07/10/23
mirtazapine 45 mg tablet 45 mg PO HS Mental Health/sleep 07/10/23
tamsulosin 0.4 mg capsule (Flomax) 0.8 mg PO DAILY@0630 Urinary Issue 07/10/23
carbidopa ER 50 mg-levodopa 200 mg 1 tab PO QID@0630,11,1530,21 01/25/24
tablet,extended release
melatonin 10 mg chewable tablet 10 mg PO DAILY@1530 01/25/24
naproxen 220 mg-diphenhydramine 25 2 tab PO HS 01/25/24
mg tablet (Aleve PM)
zolpidem 10 mg tablet (Ambien) 10 mg PO HS 01/25/24
opicapone 50 mg capsule 50 mg PO HS 08/16/24
pregabalin 100 mg capsule 100 mg PO TID@0630,1100,1530 ##0 08/16/24
sucralfate 1 gram tablet 1 g PO BID #20 tabs 08/16/24
venlafaxine 150 mg 150 mg PO DAILY@0630 08/19/24
capsule,extended release 24 hr
Review of Systems
-
All other systems: A 12 pt ROS was Negative except as stated above in HPI
Vital Signs
Temp Pulse Resp BP Pulse Ox
98.2 F 64 20 141/75 96
02/12/25 22:43 02/13/25 01:12 02/13/25 01:12 02/13/25 00:00 02/13/25 01:12
Physical Exam
Exam
General: Well Developed
HEENT: Normocephalic
Respiratory: Clear
Cardiac: S1/S2
GI: Soft, Non Tender, Non Distended and Normal Bowel Sounds
Results
Diagnostic Image Results:
Prior GI Procedures:
EGD: 08/19/24
Impression: - Food in the lower third of the esophagus. Removal
was successful.
- Schatzki ring.
- Normal examined duodenum.
EGD: 08/19/24
Impression: - Food in the lower third of the esophagus. Removal
was successful.
- Low-grade of narrowing and moderate Schatzki ring.
- Small hiatal hernia.
- Normal stomach.
- Normal examined duodenum.
Impression: - Diverticulosis in the sigmoid colon.
- Internal hemorrhoids.
Colonoscopy: 04/26/2016
Impression: - Diverticulosis in the sigmoid colon.
- Internal hemorrhoids.
Assessment / Plan
-
Recurrent food bolus impaction as described above he had 2 episodes 1 in July and 1 in August within 5 days apart in 2023 and was noted to have Schatzki's ring and was recommended repeat endoscopy with dilatation unfortunately patient had not
followed up and now presents again with food impaction. Will schedule him for emergent endoscopy with removal of food bolus. He also has not really been taking PPI as an outpatient. He was denying any symptoms of reflux prior to this and he also
has a history of Parkinson's but denies any real symptoms of dysphagia between these episodes.
Data Reviewed
-
Old Records: Reviewed
-
-
Thank you for consultation and allowing me to participate in the patient's care. Please call the aviation metals[facility] GI physician during the after hours with any questions or concerns.
== END 2025-02-13 03:30 | disposition home or self-care (01) ==
LOC: SDS 03:00
PROVIDERS: ATTENDING PHYSICIAN Internal Medicine Gastroenterology; EMERGENCY PHYSICIAN Emergency Medicine; FAMILY PHYSICIAN Nurse Practitioner Family
DX: T18.128A Food in esophagus causing other injury, initial encounter (principal); W44.F3XA Food entering into or through a natural orifice, initial encounter; K22.2 Esophageal obstruction; E78.00 Pure hypercholesterolemia, unspecified; G20.A1 Parkinson's disease without dyskinesia, without mention of fluctuations; R13.14 Dysphagia, pharyngoesophageal phase; K22.11 Ulcer of esophagus with bleeding; K44.9 Diaphragmatic hernia without obstruction or gangrene
CPT/HCPCS: 43235; 99284; 96374; J1610

== ENCOUNTER 2025-03-05 06:23 | Day surgery (SDC) | payer MEDICARE, OTHER, SELFPAY | END 2025-03-05 09:36 | disposition home or self-care (01) | LOC: GI 06:23 | PROVIDERS: ATTENDING PHYSICIAN Internal Medicine Gastroenterology | DX: R12 Heartburn (principal); K22.2 Esophageal obstruction; K44.9 Diaphragmatic hernia without obstruction or gangrene; Q39.9 Congenital malformation of esophagus, unspecified; R13.14 Dysphagia, pharyngoesophageal phase; K21.00 Gastro-esophageal reflux disease with esophagitis, without bleeding | CPT/HCPCS: 43249 ==

== ENCOUNTER → 2025-07-23 10:07 | Outpatient (REF) | payer MEDICARE, OTHER, SELFPAY ==
[2025-07-23 12:00] LABS: Glycohemoglobin (HgbA1c) 5.8 % (4.0-5.9)
[2025-07-23 12:03] LABS: ALT (SGPT) < 10 U/L (0-50); AST (SGOT) 24 U/L (17-59); Albumin 4.2 g/dl (3.5-5.0); Alkaline Phosphatase 132 U/L (38-126); Blood Urea Nitrogen 22 mg/dl (9-20); Calcium 9.2 mg/dl (8.4-10.2); Carbon Dioxide 28 mmol/L (22-30); Chloride 104 mmol/L (98-107); Glucose 109 mg/dl (70-99); HDL Cholesterol 40 mg/dl; LDL Cholesterol, Calculated 128 mg/dl; Potassium 5.2 mmol/L (3.5-5.1); Sodium 139 mmol/L (135-145); Total Protein 7.0 g/dl (6.3-8.2); Very Low Density Lipoprotein 17 mg/dl (0-30); eGFR > 60.00
== END ==
LOC: REG 10:07
PROVIDERS: ATTENDING PHYSICIAN Nurse Practitioner Family
DX: R73.01 Impaired fasting glucose (principal); E78.2 Mixed hyperlipidemia
CPT/HCPCS: 36415; 80053; 80061; 83036